=== PATIENT | female | born 1960 | race Caucasian/White ===

== ENCOUNTER 2019-06-25 16:53 | Emergency (ER) | payer SELFPAY ==
[2019-06-25 17:07] VITALS: BP 157/102; PULSE 109; RESP 16; TEMP 36.6; O2SAT 99; BMI 28.2
== END 2019-06-25 17:35 | disposition left against medical advice (07) ==
LOC: ER 07-07 12:24
PROVIDERS: Emergency Provider Family Medicine
DX: Z53.21 Procedure and treatment not carried out due to patient leaving prior to being seen by health care provider (principal)
CPT/HCPCS: 99281

== ENCOUNTER 2020-11-17 10:32 | Inpatient (IN) | payer SELFPAY ==
[2020-11-17] VITALS (14 sets, daily range): BP systolic 99–151; BP diastolic 63–86; PULSE 64–97; RESP 14–22; TEMP 36.6–37.1; O2SAT 92–98; BMI 26.6
--- NOTE | 2020-11-17 11:41 | CT_ITS ---
WS: [id number] CT ABDOMEN PELVIS TECHNIQUE: Contrast-enhanced CT of the abdomen and pelvis with coronal and sagittal reformatted image s. CLINICAL INFORMATION: epigastric pain, secondarily generalized, rebound tenderness COMPARISON: CT 9 29,018 DLP: 1325.[address] scans at [facility] use at least one of these dose optimization techniques: automat ed exposure control; mA and/or kV adjustment per patient size (includes targeted exams where dose is matched to clinical indication); or iterative reconstruction. FINDINGS: Prior postoperative hysterectomy. Large left renal cyst measuring 4.9 x 4.8 cm slightly increased in size from previous. Normal liver. Normal gallbladder. Normal portal vein and splenic vein. Normal spl een. Normal GE junction. Adrenal glands are normal. No hydronephrosis in either kidney. Small left re nal cyst. Lung bases are well aerated. Diffuse wall thickening of the sigmoid colon with edema and surrounding inflammatory changes consiste nt with acute diverticulitis. No evidence of drainable abscess or fluid collection. Colon is otherwis e normal in appearance. Normal caliber abdominal aorta. No free fluid in the pelvis. No abdominal or pelvic lymphadenopathy. No inguinal lymphadenopathy. CT/CT abdomen pelvis w con* [id number] IMPRESSION: 1. Diffuse thickening of the sigmoid colon with inflammatory stranding and nina ma in the left lower quadrant consistent with acute diverticulitis. 2. No evidence of drainable abscess or fluid collection. 3. Prior hysterectomy. 4. Large lower pole left renal cyst measuring 4.9 x 4.8 cm. No hydronephrosis. 5. No other significant changes from previous.
--- NOTE | 2020-11-17 11:44 | W.ED.ABDPA2 ---
HPI - Abdominal Pain General: Chief Complaint: Abdominal Pain Stated Complaint: severe ABD pain, lower back pain Time Seen by Provider: 11/17/20 11:26 Source: patient and family () Mode of arrival: ambulatory Limitations: no limitations History of Present Illness: HPI narrative: 60-year-old female patient who presents to the emergency department with abdominal pain for about 3 days. Started out in the epigastric region and has now become secondarily generalized. It is aggravated by any jarring movements. She does not have a diagnosed history of stomach ulcers but says she has a lot of reflux and takes lots and lots of [place]. She denies vomiting but has some nausea. No diarrhea. No fever. She is here to be evaluated for this. MD elicited complaint: abdominal pain Pertinent past history: gastritis Onset (ago): day(s) (3) Pain Consistency: constant Location: Diffuse Severity: severe Quality: stabbing Exacerbating factors: movement Relieving factors: nothing Associated Symptoms: Reports nausea; Denies anorexia, belching, bloating, change in bowel habits, change in stool character, chills, coffee ground emesis, constipation, GI cramping, diarrhea, dyspepsia, dysuria, excessive flatus, fever(s), heartburn, hematochezia, hematuria, hematemesis, fecal incontinence, loose stools, melena, poor appetite, syncope and vomiting Review of Systems General: Reports: 10 or more systems reviewed and unremarkable except in HPI and below Const: Denies: fever(s) or chills Card: Denies: syncope GI: Reports: nausea; Denies: vomiting, hematemesis, coffee ground emesis, heartburn, diarrhea, constipation, bloating, GI cramping, belching, excessive flatus, fecal incontinence, change in bowel habits, change in stool character, hematochezia or melena : Denies: dysuria or hematuria Physical Exam Const: COMMON NORMALS: average body habitus, patient oriented x3, no limitations, healthy appearing, alert and well nourished GENERAL APPEARANCE: in distress HENMT: COMMON NORMALS: normocephalic, atraumatic and moist oral mucous membranes HEAD & SCALP: normocephalic and atraumatic Neck/C-Spine: COMMON NORMALS: no meningeal signs and no JVD Chest: COMMONS NORMALS: normal inspection of the chest and normal palpation of entire chest wall Resp: COMMON NORMALS: normal respiratory effort, No retractions, No use of accessory muscles, clear to auscultation bilaterally and percussion normal AUSCULTATION: clear to auscultation bilaterally PERCUSSION: percussion normal Cardio: COMMON NORMALS: no JVD, regular rate, regular rhythm, S1 normal heart sound present, S2 normal heart sound present, No gallops present (Cardio), No clicks present (Cardio), No murmurs present (Cardio), No rub (Cardio) and Peripheral pulses 2+ throughout RATE: regular rate RHYTHM: regular rhythm HEART SOUNDS: S1 normal heart sound present and S2 normal heart sound present PERIPHERAL PULSES: Peripheral pulses 2+ throughout GI: COMMON NORMALS: Soft to palpation, non-tender, No hepatosplenomegaly present, no masses and no bruits INSPECTION: Yes normal to inspection PALPATION: Yes Soft to palpation, Yes Tenderness to palpation present (GI) (generalized), Yes Guarding due to palpation present (GI) (generalized), Yes No hepatosplenomegaly present and Yes Rebound tenderness present Extremity: COMMON NORMALS: normal to inspection, full ROM, capillary refill normal, no calf tenderness and no pedal edema Neuro: COMMON NORMALS: patient oriented x3 SENSORIUM/ORIENTATION: Yes alert MENINGEAL SIGNS: Yes no meningeal signs Course Reevaluation(s): Reevaluation #1: Discussed her lab and imaging findings with her. Explained that she has acute diverticulitis. Discussed treatment options with her-outpatient versus inpatient therapy. She has significant amount of pain and she is concerned about going home with so much pain. I will therefore admitted to the hospital for IV antibiotics and pain control. The degree of tenderness and rebound tenderness is concerning and I am worried that she may have a microperforation that is not evident yet on imaging. So I think it is a good idea to keep her in the hospital for serial exams and further evaluation. Time: 13:44 Consultations: Consultation #1: Discussed the patient with Dr. Wiggins, hospitalist and she kindly accepted patient to her service. Time: 13:58 Vital Signs: Vital signs: Vital Signs Temperature 98.8 F 11/17/20 20:00 Pulse Rate 81 11/17/20 20:00 Respiratory Rate 14 11/17/20 20:00 Blood Pressure 105/63 11/17/20 20:00 Pulse Oximetry 92 11/17/20 20:00 MDM - Abdominal Pain MDM Narrative: Medical decision making narrative: 60-year-old female patient who presents to the emergency department with abdominal pain of several days duration. Evaluation in the emergency department shows she has acute diverticulitis. Her abdominal examination is however concerning and she is being admitted for IV antibiotics and further evaluation. Medical Records: Attestation: I reviewed the patient's medical records. Lab Data: Attestation: I reviewed the patient's lab results. Labs: Lab Results 11/17/20 11/17/20 11/17/20 Range/Units 13:10 13:10 13:10 WBC 13.2 H (4.0-10.0) 10^3/ uL RBC 3.58 L (4.1-5.3) 10^6/u L Hgb 11.7 (11.5-15.3) g/dL Hct 35.2 L (37.0-47.0) % MCV 98.3 (81-99) fL MCH 32.7 (28.0-34.0) pg MCHC 33.2 (30.0-36.0) g/dL RDW 12.2 (12.1-15.1) % Plt Count 203 (130-400) 10^3/c mm MPV 9.5 (7.4-10.4) fL Neut % (Auto) 82.1 % Lymph % (Auto) 11.0 % [place] % (Auto) 6.4 % Eos % (Auto) 0.0 % Baso % (Auto) 0.2 % Neut # (Auto) 10.82 H (1.8-7.7) 10^3/u L Lymph # (Auto) 1.5 (0.8-4.8) 10^3/u L [place] # (Auto) 0.8 (0.2-0.9) 10^3/u L Eos # (Auto) 0.0 (0.0-0.8) 10^3/u L Baso # (Auto) 0.0 (0.0-0.1) 10^3/u L Nucleated RBC % (a uto) 0 % Nucleated RBCs # 0.0 /100WBC Sodium 140 (136-145) mmol/L Potassium 3.4 L (3.5-5.1) mmol/L Chloride 110 H (98-107) mmol/L Carbon Dioxide 21 L (22-29) mmol/L Anion Gap 12.4 (5-19) BUN 9 (6-20) mg/dL Creatinine 0.5 (0.5-0.9) mg/dL GFR Calculation 126.7 (90-130) mL/min Glucose 85 (65-115) mg/dL Calculated Osmolal ity 288 (285-295) mOsm/k g Lactate 0.7 (0.5-2.2) mmol/L Calcium 6.5 L (8.5-10.5) mg/dL Magnesium (1.7-2.3) mg/dL Total Bilirubin 0.7 (0.15-1.2) mg/dL AST 19 (0-32) U/L ALT 16 (0-33) U/L Alkaline Phosphata se 73 (35-105) IU/L C-Reactive Protein 93.9 H (0.0-4.9) mg/L Total Protein 5.1 L (6.6-8.7) g/dL Albumin 2.8 L (3.5-5.2) g/dL Globulin 2.3 (1.3-4.6) g/dL Lipase 16 (13-60) U/L Urine Color (Yellow) Urine Appearance (CLEAR) Urine pH (5-7) Ur Specific Gravit y (1.005-1.030) Urine Protein (Negative) Urine Glucose (UA) (Normal) Urine Ketones (Negative) Urine Blood (Negative) Urine Nitrate (Negative) Urine Bilirubin (Negative) Urine Urobilinogen (Negative) mg/dL Ur Leukocyte Funmi ase (Negative) Urine RBC (0-2) /hpf Urine WBC (0-5) /hpf Ur Squamous Epith Cells (0-5) /hpf Amorphous Sediment Urine Bacteria (NONE) /hpf 11/17/20 11/17/20 Range/Units 13:10 13:50 WBC (4.0-10.0) 10^3/ uL RBC (4.1-5.3) 10^6/u L Hgb (11.5-15.3) g/dL Hct (37.0-47.0) % MCV (81-99) fL MCH (28.0-34.0) pg MCHC (30.0-36.0) g/dL RDW (12.1-15.1) % Plt Count (130-400) 10^3/c mm MPV (7.4-10.4) fL Neut % (Auto) % Lymph % (Auto) % [place] % (Auto) % Eos % (Auto) % Baso % (Auto) % Neut # (Auto) (1.8-7.7) 10^3/u L Lymph # (Auto) (0.8-4.8) 10^3/u L [place] # (Auto) (0.2-0.9) 10^3/u L Eos # (Auto) (0.0-0.8) 10^3/u L Baso # (Auto) (0.0-0.1) 10^3/u L Nucleated RBC % (a uto) % Nucleated RBCs # /100WBC Sodium (136-145) mmol/L Potassium (3.5-5.1) mmol/L Chloride (98-107) mmol/L Carbon Dioxide (22-29) mmol/L Anion Gap (5-19) BUN (6-20) mg/dL Creatinine (0.5-0.9) mg/dL GFR Calculation (90-130) mL/min Glucose (65-115) mg/dL Calculated Osmolal ity (285-295) mOsm/k g Lactate (0.5-2.2) mmol/L Calcium (8.5-10.5) mg/dL Magnesium 1.7 (1.7-2.3) mg/dL Total Bilirubin (0.15-1.2) mg/dL AST (0-32) U/L ALT (0-33) U/L Alkaline Phosphata se (35-105) IU/L C-Reactive Protein (0.0-4.9) mg/L Total Protein (6.6-8.7) g/dL Albumin (3.5-5.2) g/dL Globulin (1.3-4.6) g/dL Lipase (13-60) U/L Urine Color Yellow (Yellow) Urine Appearance Clear (CLEAR) Urine pH 7 (5-7) Ur Specific Gravit y 1.005 (1.005-1.030) Urine Protein Neg (Negative) Urine Glucose (UA) Norm (Normal) Urine Ketones Negative (Negative) Urine Blood 2+ H (Negative) Urine Nitrate Negative (Negative) Urine Bilirubin Neg (Negative) Urine Urobilinogen Norm (Negative) mg/dL Ur Leukocyte Funmi ase Negative (Negative) Urine RBC 5-10 H (0-2) /hpf Urine WBC None (0-5) /hpf Ur Squamous Epith Cells 0-4 H (0-5) /hpf Amorphous Sediment Not Reportable Urine Bacteria Trace (NONE) /hpf Imaging Data ^: CT Abd/Pel: Attestation: I personally reviewed and interpreted this imaging study as follows: Radiologist's impression: [address] [id number] Scan ReportSigned Patient: Luly Dumont #: [id number]: 1960Acct#:[id number]/Sex: 60 / FADM Date: 11/17/20Loc: ERRoom/Bed:Attending Dr: Ordering Provider/Ordering MD: Leonardo Cano MD, [facility] [place] Date of Service: 11/17/20 Procedure(s): CT abdomen pelvis w con* [id number] Accession Number(s): [id number] Report Number: [id number] WS: [id number] CT ABDOMEN PELVIS TECHNIQUE: Contrast-enhanced CT of the abdomen and pelvis with coronal and sagittal reformatted images. CLINICAL INFORMATION: epigastric pain, secondarily generalized, rebound tenderness COMPARISON: CT 9 29,018 DLP: 1325.[address] scans at [facility] use at least one of these dose optimization techniques: automated exposure control; mA and/or kV adjustment per patient size (includes targeted exams where dose is matched to clinical indication); or iterative reconstruction. FINDINGS: Prior postoperative hysterectomy. Large left renal cyst measuring 4.9 x 4.8 cm slightly increased in size from previous. Normal liver. Normal gallbladder. Normal portal vein and splenic vein. Normal spleen. Normal GE junction. Adrenal glands are normal. No hydronephrosis in either kidney. Small left renal cyst. Lung bases are well aerated. Diffuse wall thickening of the sigmoid colon with edema and surrounding inflammatory changes consistent with acute diverticulitis. No evidence of drainable abscess or fluid collection. Colon is otherwise normal in appearance. Normal caliber abdominal aorta. No free fluid in the pelvis. No abdominal or pelvic lymphadenopathy. No inguinal lymphadenopathy. CT/CT abdomen pelvis w con* [id number] IMPRESSION: 1. Diffuse thickening of the sigmoid colon with inflammatory stranding and edema in the left lower quadrant consistent with acute diverticulitis. 2. No evidence of drainable abscess or fluid collection. 3. Prior hysterectomy. 4. Large lower pole left renal cyst measuring 4.9 x 4.8 cm. No hydronephrosis. 5. No other significant changes from previous. Dictated By:Darío Arnold MDSigned By:Darío Arnold MDSigned Date/Time:11/17/20 1237DD/ 1230 Discharge Plan Discharge Patient Disposition: Admitted As Inpatient Admit Provider: August Wiggins Clinical Impression: Diverticulitis large intestine Condition: Stable Coding Level of Care Code ED Printing Machine Mechanic for [facility] Fwd Exam Comprehensive
[2020-11-17] MEDS: morphine 4 mg/mL SDV 1 mL IVP ×2 (11:54→16:09)
[2020-11-17] MEDS: ondansetron 2 mg/ML SDV 2 mL 4 MG IVP (11:54)
--- NOTE | 2020-11-17 12:11 | PC.NURSE ---
C/O nausea and severe abdominal pain 03/13. Meds administered per order. Pt states she believed she was constipated so she did two fleet enemas yesterday and one this AM. Normally she has no difficulty with BM's.
[2020-11-17] MEDS: iohexol 300 mg/mL 100 mL Btl IV (12:25)
[2020-11-17] MEDS: ciprofloxacin 400 MG/200 ML PREMIX 200 MG IV (12:54)
--- NOTE | 2020-11-17 12:57 | PC.PHAR ---
pt states she takes no rx medications-pt states she only takes otc medications prn-pt states she does use bd oil in her coffee every morning but states she hasnt used for 2 days
[2020-11-17 13:17] LABS: Basophils % 0.2 %; Hematocrit 35.2 % (37.0-47.0); Hemoglobin 11.7 g/dL (11.5-15.3); Lymphocytes # 1.5 10^3/uL (0.8-4.8); Mean Corpuscular HGB Conc 33.2 g/dL (30.0-36.0); Mean Corpuscular Hemoglobin 32.7 pg (28.0-34.0); Mean Corpuscular Volume 98.3 fL (81-99); Mean Platelet Volume 9.5 fL (7.4-10.4); Monocytes # 0.8 10^3/uL (0.2-0.9); Monocytes % 6.4 %; Neutrophils # 10.82 10^3/uL (1.8-7.7); Neutrophils % 82.1 %; Nucleated Red Blood Cells % 0 %; Platelet Count 203 10^3/cmm (130-400); Red Blood Count 3.58 10^6/uL (4.1-5.3); Red Cell Distribution Width 12.2 % (12.1-15.1); White Blood Count 13.2 10^3/uL (4.0-10.0)
[2020-11-17 13:35] LABS: Alanine Aminotransferase 16 U/L (0-33); Albumin Level 2.8 g/dL (3.5-5.2); Alkaline Phosphatase 73 IU/L (35-105); Aspartate Amino Transferase 19 U/L (0-32); Blood Urea Nitrogen 9 mg/dL (6-20); C Reactive Protein 93.9 mg/L (0.0-4.9); Calcium 6.5 mg/dL (8.5-10.5); Carbon Dioxide 21 mmol/L (22-29); Chloride 110 mmol/L (98-107); Globulin 2.3 g/dL (1.3-4.6); Glomerular Filtration Rate 126.7 mL/min (90-130); Glucose 85 mg/dL (65-115); Lactate (Lactic Acid level) 0.7 mmol/L (0.5-2.2); Lipase 16 U/L (13-60); Osmolality Calculated 288 mOsm/kg (285-295); Sodium 140 mmol/L (136-145); Total Bilirubin 0.7 mg/dL (0.15-1.2); Total Protein 5.1 g/dL (6.6-8.7)
[2020-11-17 13:36] LABS: Anion Gap 12.4 (5-19); Potassium 3.4 mmol/L (3.5-5.1)
[2020-11-17 14:07] LABS: Add Urine Microscopic? YES; Bilirubin Urine Neg (Negative); Blood Urine 2+ (Negative); Glucose Urine UA Norm (Normal); Ketones Urine Negative (Negative); Leukocyte Esterase Urine Negative (Negative); Nitrate Urine Negative (Negative); Protein Urine Neg (Negative); Specific Gravity, Urine 1.005 (1.005-1.030); Urine Appearance Clear (CLEAR); Urine Color Yellow (Yellow); Urobilinogen Urine Norm (Negative); pH Urine 7 (5-7)
[2020-11-17 14:27] LABS: Add Urine Culture? No; Bacteria Urine TRACE /hpf; Squamous Epithelial Cell Urine 0-4 /hpf (0-5)
[2020-11-17] MEDS: metroNIDAZOLE IV 500 MG/100 ML PREMIX 100 MG IV ×2 (14:56→23:37)
--- NOTE | 2020-11-17 15:22 | PC.NURSE ---
Report called to Ting--Med Surg nurse.
[2020-11-17] MEDS: dextrose 5%-sod chloride 0.9% 1,000 ML 100 ML IV (16:09)
[2020-11-17] MEDS: heparin 5,000 unit/mL INJ 1 mL 5000 UNIT SUBCUT ×2 (16:10→23:37)
--- NOTE | 2020-11-17 17:04 | PC.NURSE ---
Report to Cindy ECKERT at this time.
[2020-11-17] MEDS: HYDROmorphone 1 mg/mL INJ 1 mL 0.5 MG IVP (18:12)
--- NOTE | 2020-11-17 18:54 | P.HP_ITS ---
Providers/Chief Complaint Admitting Physician: August Wiggins DO Primary Care Provider: Scooter Hwang Chief Complaint: severe ABD pain, lower back pain History of Present Illness Luly Dumont is a 60 year old female who progressed presents with abdominal pain. She states it started in her upper stomach where she is frequently has nausea and heartburn. Then progressed to the lower abdomen. The pain worse and became very severe 2 days ago. Finally she was unable to tolerate the pain and came to the emergency room. She was found to have acute diverticulitis. He denies any history of diverticulosis or-itis. She admits to significant stress caring for her mother. Review of Systems Const: Denies: fever(s) or chills Eyes: Denies: change in vision ENMT: Denies: throat pain or nasal congestion Card: Denies: chest pain or palpitations Resp: Denies: dyspnea or productive cough GI: Reports: abdominal pain and nausea; Denies: vomiting, diarrhea or constipation : Denies: dysuria Musc: Denies: back pain or extremity pain Skin/Breast: Denies: rash or lesions Neuro: Denies: headache(s) or dizziness Psych: Reports: anxiety [place]/Lymph: Denies: easy bruising or easy bleeding Medications/Allergies Home Medications Medication Instructions Recorded Confirmed Last Taken Type acetaminophen [Tylenol Ex Str 1,000 mg PO PRN 11/17/20 11/17/20 11/17/20 History Rapid Release] multivitamin 1 tab PO DAILY 11/17/20 11/17/20 11/15/20 History Allergies Allergy/AdvReac Type Severity Reaction Status Date / Time No Known Allergies Allergy Verified 11/17/20 12:57 Vitals/I&O/Wt Last Vital Signs Temp 98.3 F 11/17/20 16:00 Pulse 65 11/17/20 16:00 Resp 18 11/17/20 16:09 BP 136/81 11/17/20 16:00 Pulse Ox 95 11/17/20 16:09 11/17/20 11/17/20 11/17/20 06:59 14:59 22:59 Intake Total 540 / 540 Balance 540 / 540 Weight last 48 hrs Weight 74.843 kg Physical Exam Narrative: EXAM NARRATIVE: General: Patient appears her stated age of 60 she is in mild to moderate distress due to pain and discomfort. Appears well- nourished and well-hydrated. H EENT: Head is normocephalic atraumatic pupils are equal round and reactive to light and accommodation. Extraocular muscles are intact there is no scleral icterus nasal and pharyngeal mucosa is moist and pink there is no exudate. Neck is supple no JVD carotid bruits or lymphadenopathy heart is regular normal S1-S2 without murmurs clicks gallops or rubs lungs are clear to auscultation without wheezes rales or rhonchi abdomen is very tender even to light palpation worse in the left lower quadrant she has sluggish bowel sounds. Extremities no clubbing cyanosis or edema neuro alert and oriented to person place time and situation cranial nerves II through XII are grossly intact she has nonfocal psychiatric patient does show signs of some anxiety and admits to severe stress. Data : 11/17/20 13:10 11/17/20 13:10 A&P Assessment and plan (1) Diverticulitis large intestine: Bowel rest Antibiotics Fluids Control Status: Acute (2) Stress and adjustment reaction: Hydroxyzine for stress and anxiety Status: Acute (3) Elevated white blood cell count: Cipro and Flagyl for active infection Status: Acute (4) Hypokalemia due to excessive gastrointestinal loss of potassium: Potassium added to IV will follow and supplement as indicated Status: Acute (5) Hypocalcemia: Will give a gram of calcium gluconate. Status: Acute (6) Hypoalbuminemia: We will follow Status: Acute Attestations Medical Necessity Statement*: Patient with severe abdominal pain and nausea. Patient is unable to eat she requires IV hydration and IV antibiotics to treat her infection. Patient may likely require 2 midnights Coding Level of Care Code Acute Biomedical Technician for [facility] Fwd Diagnoses Diverticulitis large intestine K57.32 Stress and adjustment reaction F43.29 Elevated white blood cell count D72.829 Hypokalemia due to excessive gastrointestinal loss of potassium E87.6 Hypocalcemia E83.51 Hypoalbuminemia E88.09
[2020-11-17 19:29] LABS: Magnesium 1.7 mg/dL (1.7-2.3)
[2020-11-17] MEDS: diazePAM 5 mg Tablet PO (20:55)
[2020-11-17] MEDS: dextrose 5%-sod chloride 0.9% 1,000 ML 200 ML IV (20:56)
[2020-11-18] VITALS (13 sets, daily range): BP systolic 103–120; BP diastolic 61–75; PULSE 50–72; RESP 14–20; TEMP 36.3–37; O2SAT 92–100
[2020-11-18] MEDS: ciprofloxacin 400 MG/200 ML PREMIX 200 MG IV ×2 (01:42→14:03)
[2020-11-18] MEDS: HYDROmorphone 1 mg/mL INJ 1 mL 0.5 MG IVP ×3 (02:51→16:50)
[2020-11-18] MEDS: dextrose 5%-sod chloride 0.9% 1,000 ML 200 ML IV ×2 (05:53→12:12)
[2020-11-18 05:57] LABS: Basophils % 0.2 %; Eosinophils % 0.2 %; Hematocrit 32.2 % (37.0-47.0); Hemoglobin 10.6 g/dL (11.5-15.3); Lymphocytes # 1.1 10^3/uL (0.8-4.8); Lymphocytes % 13.4 %; Mean Corpuscular HGB Conc 32.9 g/dL (30.0-36.0); Mean Corpuscular Hemoglobin 32.5 pg (28.0-34.0); Mean Corpuscular Volume 98.8 fL (81-99); Mean Platelet Volume 9.5 fL (7.4-10.4); Monocytes # 0.6 10^3/uL (0.2-0.9); Monocytes % 7.5 %; Neutrophils # 6.29 10^3/uL (1.8-7.7); Neutrophils % 78.5 %; Nucleated Red Blood Cells % 0 %; Platelet Count 208 10^3/cmm (130-400); Red Blood Count 3.26 10^6/uL (4.1-5.3); Red Cell Distribution Width 12.2 % (12.1-15.1)
[2020-11-18] MEDS: morphine 4 mg/mL SDV 1 mL IVP (06:00)
[2020-11-18 06:17] LABS: Blood Urea Nitrogen 7 mg/dL (6-20); Calcium 7.9 mg/dL (8.5-10.5); Carbon Dioxide 27 mmol/L (22-29); Chloride 105 mmol/L (98-107); Glomerular Filtration Rate 85.9 mL/min (90-130); Glucose 125 mg/dL (65-115); Magnesium 1.8 mg/dL (1.7-2.3); Osmolality Calculated 283 mOsm/kg (285-295); Sodium 137 mmol/L (136-145)
[2020-11-18] MEDS: metroNIDAZOLE IV 500 MG/100 ML PREMIX 100 MG IV ×3 (07:23→22:18)
[2020-11-18] MEDS: heparin 5,000 unit/mL INJ 1 mL 5000 UNIT SUBCUT ×3 (07:23→22:53)
[2020-11-18] MEDS: ondansetron 2 mg/ML SDV 2 mL 4 MG IVP (09:04)
--- NOTE | 2020-11-18 10:50 | PC.CHAP ---
Pastoral Care Encounter/Spiritual Assessment Type of Contact [x] Declined deckhand oyster dredge visit [] Patient/Family/Request visit [] Outpatient visit [] Follow-up visit [] Physician referral [] Code/Alert [] Routine visit [] Staff referral [] Actively dying [] Patient sleeping [] Family support [] [] Out of room [] Palliative care [] [] Receiving care in room [] Pre-surgical visit [] Trauma [] Long length of stay [] ICU visit [] Other: Relational/Emotional Strength [] Patient feels connected with others/family/visitors/staff [] Distress [] Loneliness/isolation [] Abandonment Spirituality of Patient [] Person of Shelly [] Attends Evangelical of their Shelly [] Believes in Prayer [] Reads Bible or Spiritism materials [] There are Spiritual issues to be addressed Laboratory Associate Interventions [] Prayer [] Active listening [] Non-anxious presence [] Spiritual/emotional support [] Crisis/trauma care [] Spiritual counseling [] Bereavement support [] Provided bereavement packet [] Provided Bible/devotional materials [] Provided toy/stuffed animal, coloring book to patient or family member [] Provided Communion [] Anointing/[place] [] Salvation [] Completed spiritual assessment [] Other: Impact on Illness or Injury [] Angry [] Fearful [] Anxious [] Often cries [] Exhaustion [] Unable to work [] Unable to attend church [] Unable to walk/stand [] Unable to read [] Unable to drive [] Unable to eat/drink [] Unable to sleep [] Unable to be with family [] Patient intubated [] Other: Summary Declined deckhand oyster dredge visit Time spent with patient 5 mins
[2020-11-18] MEDS: hyDROXYzine 25 mg Capsule 50 MG PO ×2 (12:11→20:06)
--- NOTE | 2020-11-18 15:30 | P.PN_ITS ---
Subjective Subjective: Interval history: Patient reports significant pain. RN present while rounding and states patient does not ask for pain medications. Also patient complained of lack of sleep due to her roommate. Vitals/I&O/Wt Last Vital Signs Temp 97.9 F 11/18/20 15:16 Pulse 50 L 11/18/20 15:16 Resp 17 11/18/20 15:16 BP 116/75 11/18/20 15:16 Pulse Ox 95 11/18/20 15:16 11/18/20 11/18/20 11/18/20 06:59 14:59 22:59 Intake Total 1500 / 3228.333 1610 / 1610 200 / 1810 Balance 1500 / 3228.333 1610 / 1610 200 / 1810 Weight last 48 hrs Weight 74.843 kg Physical Exam Narrative: EXAM NARRATIVE: General: Patient appears she is holding her belly while we talk. Heart normal S1-S2 without murmurs clicks gallops or rubs lungs: Clear to auscultation Abdomen extremely tender to even mild palpation. I feel that this is psychiatric in nature. Extremities: No clubbing cyanosis or edema Data : 11/18/20 05:35 11/18/20 05:35 A&P Assessment and plan (1) Diverticulitis large intestine: Continue IV Cipro and Flagyl for now Status: Acute Qualifiers: Diverticulitis bleeding: without bleeding Diverticulitis complication: without perforation or abscess Qualified Code(s): K57.32 - Diverticulitis of large intestine without perforation or abscess without bleeding (2) Hypokalemia due to excessive gastrointestinal loss of potassium: Potassium is 4.0 now after supplementation. Status: Acute (3) Hypocalcemia: Patient received a dose of calcium gluconate calcium is now 7.9. Corrected with albumin level results and corrected calcium level of 8.86 which is now normal. Status: Acute (4) Elevated white blood cell count: White blood cell count is now after 1 day of antibiotic treatment Status: Acute (5) Hypoalbuminemia: This may be the result of diverticulitis can follow as outpatient. Status: Acute (6) Stress and adjustment reaction: Valium to help with sleep. As needed for anxiety. Status: Acute Attestations Medical Necessity Statement*: Patient has been requiring IV pain medication IV fluids and IV antibiotics. Will adjust pain medications and keep another midnight. Coding Level of Care Code Acute Chief Medical Officer for [facility] Fwd Diagnoses Diverticulitis large intestine K57.32 Diverticulitis bleeding: without bleeding Diverticulitis complication: without perforation or abscess Hypokalemia due to excessive gastrointestinal loss of potassium E87.6 Hypocalcemia E83.51 Elevated white blood cell count D72.829 Hypoalbuminemia E88.09 Stress and adjustment reaction F43.29
--- NOTE | 2020-11-18 19:27 | PC.NURSE ---
Report to Janny Faith LPN at this time.
[2020-11-18] MEDS: diazePAM 5 mg Tablet 10 MG PO (20:06)
[2020-11-18] MEDS: dextrose 5%-sod chloride 0.9% 1,000 ML 125 ML IV (20:12)
[2020-11-19] VITALS (8 sets, daily range): BP systolic 108–154; BP diastolic 65–91; PULSE 61–71; RESP 16–18; TEMP 36.6–37.3; O2SAT 93–97
[2020-11-19] MEDS: ciprofloxacin 400 MG/200 ML PREMIX 200 MG IV ×2 (00:55→13:30)
--- NOTE | 2020-11-19 05:25 | P.PN_ITS ---
Subjective Subjective: Interval history: 60-year-old female Presented to the hospital with abdominal pain.Upon arrival to emergency room she did have a CT abdomen pelvis which showed diffuse thickening of the sigmoid colon with inflammatory stranding and edema suggestive of diverticulitis. Incidentally was noted to have a large left renal cyst measuring 4.9 x 4.8 cm.Laboratory workup is showed a WBC of 13.2, hemoglobin of 11.7, hematocrit of 35.2 and a platelet count of 203. Sodium 140, potassium 3.4, chloride 110, bicarb 21, BUN 9 and creatinine of 0.5. Lactic acid of 0.7 LFTs were within normal limits. Urinalysis did not show any evidence of infectious process.She was started on [id number] mg IV q.12 and Flagyl 500 mg IV Q 8. Addition was started on clear liquid diet. leukocytosis have resolved. Medications: Reviewed: Yes Vitals/I&O/Wt Last Vital Signs Temp 98.9 F 11/19/20 04:42 Pulse 71 11/19/20 04:42 Resp 17 11/19/20 04:42 BP 108/65 11/19/20 04:42 Pulse Ox 97 11/19/20 04:42 11/18/20 11/18/20 11/19/20 14:59 22:59 06:59 Intake Total 1610 / 1610 1520 / 3130 1300 / 4430 Balance 1610 / 1610 1520 / 3130 1300 / 4430 Weight last 48 hrs Weight 74.843 kg Physical Exam Narrative: EXAM NARRATIVE: General :Awake, alert and oriented x3 HEENT: Grossly unremarkable CVS: RRR Chest: CTABL Abd: Soft, NT, ND Ext : No edema , FROM x 4. Data : 11/19/20 05:59 11/19/20 05:59 A&P Assessment and plan (1) Sigmoid diverticulitis: Status: Acute (2) Hypokalemia due to excessive gastrointestinal loss of potassium: Status: Acute Acute sigmoid diverticulitis Continue ciprofloxacin 400 mg IV Q 12 Flagyl 500 mg IV q.8 Tolerating clear liquid diet Advance diet pain improved Leukocytosis resolved Outpatient follow-up with General surgery Attestations Medical Necessity Statement*: Require further hospitalization for management of diverticulitis Time Spent in Patient Care: Greater than 35 minutes (>than 50% of time spent in counselling and/or direct pt care on unit) . Coding Level of Care Code Acute Clinical Technologist for [facility] Fwd Diagnoses Sigmoid diverticulitis K57.32 Hypokalemia due to excessive gastrointestinal loss of potassium E87.6
[2020-11-19 06:13] LABS: Basophils % 0.4 %; Eosinophils # 0.1 10^3/uL (0.0-0.8); Eosinophils % 1.2 %; Hematocrit 33.3 % (37.0-47.0); Lymphocytes # 1.2 10^3/uL (0.8-4.8); Lymphocytes % 23.1 %; Mean Corpuscular Hemoglobin 32.2 pg (28.0-34.0); Mean Corpuscular Volume 97.4 fL (81-99); Mean Platelet Volume 9.7 fL (7.4-10.4); Monocytes # 0.4 10^3/uL (0.2-0.9); Monocytes % 8.1 %; Neutrophils # 3.48 10^3/uL (1.8-7.7); Nucleated Red Blood Cells % 0 %; Platelet Count 204 10^3/cmm (130-400); Red Blood Count 3.42 10^6/uL (4.1-5.3); White Blood Count 5.2 10^3/uL (4.0-10.0)
[2020-11-19] MEDS: dextrose 5%-sod chloride 0.9% 1,000 ML 125 ML IV ×3 (06:16→23:59)
[2020-11-19] MEDS: metroNIDAZOLE IV 500 MG/100 ML PREMIX 100 MG IV ×3 (06:18→23:58)
[2020-11-19 06:33] LABS: Anion Gap 9.9 (5-19); Blood Urea Nitrogen 4 mg/dL (6-20); Calcium 8.2 mg/dL (8.5-10.5); Carbon Dioxide 27 mmol/L (22-29); Chloride 107 mmol/L (98-107); Glomerular Filtration Rate 85.9 mL/min (90-130); Glucose 103 mg/dL (65-115); Osmolality Calculated 287 mOsm/kg (285-295); Potassium 3.9 mmol/L (3.5-5.1); Sodium 140 mmol/L (136-145)
[2020-11-19] MEDS: heparin 5,000 unit/mL INJ 1 mL 5000 UNIT SUBCUT ×3 (07:47→23:59)
[2020-11-19] MEDS: acetaminophen 325 mg Tablet 650 MG PO (10:20)
[2020-11-19] MEDS: hyDROXYzine 25 mg Capsule 50 MG PO ×2 (10:20→21:07)
--- NOTE | 2020-11-19 18:58 | PC.NURSE ---
Report to Janny Faith LPN at this time.
[2020-11-19] MEDS: diazePAM 5 mg Tablet 10 MG PO (21:07)
[2020-11-20] VITALS (7 sets, daily range): BP systolic 116–143; BP diastolic 63–83; PULSE 66–78; RESP 18–20; TEMP 36.4–37; O2SAT 95–98
[2020-11-20] MEDS: ciprofloxacin 400 MG/200 ML PREMIX 100 MG IV (01:23)
[2020-11-20] MEDS: metroNIDAZOLE IV 500 MG/100 ML PREMIX 100 MG IV (06:29)
[2020-11-20] MEDS: dextrose 5%-sod chloride 0.9% 1,000 ML 200 ML IV (07:58)
[2020-11-20] MEDS: heparin 5,000 unit/mL INJ 1 mL 5000 UNIT SUBCUT (07:58)
[2020-11-20] MEDS: acetaminophen 325 mg Tablet 650 MG PO (11:28)
--- NOTE | 2020-11-20 20:36 | P.DS_ITS ---
Discharge Providers Date of Admission: 11/18/20 15:30 Date of Discharge: November 20, 2020 Attending Provider at Admission: August Wiggins DO Attending Provider at Discharge: Nathaniel Calderon Primary Care Provider: Scooter Hwang Diagnoses at Discharge Discharge Diagnosis (1) Sigmoid diverticulitis: Status: Acute (2) Hypokalemia due to excessive gastrointestinal loss of potassium: Status: Resolved Reason for Visit Reason for Visit: severe ABD pain, lower back pain Hospital Course Hospital Course 10-year-old female Presented to the hospital with abdominal pain.Upon arrival to emergency room she did have a CT abdomen pelvis which showed diffuse thickening of the sigmoid colon with inflammatory stranding and edema suggestive of diverticulitis. Incidentally was noted to have a large left renal cyst measuring 4.9 x 4.8 cm.Laboratory workup is showed a WBC of 13.2, hemoglobin of 11.7, hematocrit of 35.2 and a platelet count of 203. Sodium 140, potassium 3.4, chloride 110, bicarb 21, BUN 9 and creatinine of 0.5. Lactic acid of 0.7 LFTs were within normal limits. Urinalysis did not show any evidence of infectious process.She was started on [id number] mg IV q.12 and Flagyl 500 mg IV Q 8. Addition was started on clear liquid diet. Leukocytosis has resolved. Patient pain had also resolved. She was transitioned to PO abx and discharged. Follow up with pcp. Also to f/u with surgery for colonosopcy in 4-6 weeks. Physical Exam Narrative: EXAM NARRATIVE: General :Awake, alert and oriented x3 HEENT: Grossly unremarkable CVS: RRR Chest: CTABL Abd: Soft, NT, ND Ext : No edema , FROM x 4. Discharge Data Data Completed and Pending: Completed Studies During Hospitalization Category Date Time Status CT abdomen pelvis w con* [id number] Urge nt Cat Scan 11/17/20 11:41 Completed Vitals: Last Vital Signs Temp 97.5 F L 11/20/20 14:35 Pulse 75 11/20/20 14:35 Resp 18 11/20/20 14:35 BP 127/63 11/20/20 14:35 Pulse Ox 98 11/20/20 14:35 Discharge Plan Discharge Patient Disposition: Home Condition: Stable Prescriptions: New Augmentin 875-125 mg tablet 1 tab PO BID Qty: 14 RF: 0 Continued multivitamin Tablet 1 tab PO DAILY RF: 0 acetaminophen 500 mg Tablet 1,000 mg PO PRN RF: 0 No Action hydroxyzine pamoate 25 mg capsule 25 mg PO QID PRN (Reason: Anxiety) Qty: 60 RF: 0 lisinopril 5 mg tablet 5 mg PO DAILY Qty: 30 RF: 2 Discharge Orders: Discharge Order (Routine); Ordered 11/20/20 Ordered By: Nathaniel Calderon Referrals: Sree Omer MD [Physician] - 6 Weeks (Colonoscopy ) Slava Samson FNP [Nurse Practitioner] - (You will have a follow up appointment on November 26, 2019 at 9:30 am at the [facility]. If you have any questions or need to reschedule please call them at [phone].) Discharge Diet: Advance as tolerated Discharge Activity: Increase activity as tolerated Patient Instructions: Amoxicillin/Clavulanate Potassium (By mouth), Hydroxyzine Pamoate (By mouth), Diverticulitis (GEN), Stress (DC), Diverticulitis Diet (DC), Ascites (DC), Opioid Safety Activity Restrictions/Additional Instructions: Return to hospital if any recurrance of pain, nausea or vomiting. Discharge Attestations Time Spent in Discharge Care*: greater than 30 min Specific Discharge Activities: educating patient, educating and/or supporting family/caregiver, discussing with bilingual case manager/social workers/dc planners, documenting/other paperwork and evaluating patient/reviewing data Status at Discharge: Cognitive status at discharge: cognitively intact , Behavioral status at discharge: cooperative , Functional status at discharge: independent ambulation Overall status at discharge: patient is back to baseline Quality Metrics Clinical Quality Measures During this hospital stay, did patient experience: None Coding Level of Care Code Acute Chg FW DC note Diagnoses Sigmoid diverticulitis K57.32 Hypokalemia due to excessive gastrointestinal loss of potassium E87.6
== END 2020-11-20 14:30 | disposition home or self-care (01) | DRG 392 ==
LOC: ER 11:26 → MEDSURG 14:54
PROVIDERS: Admitting Provider Internal Medicine; Emergency Provider Family Medicine; PCP Nurse Practitioner Family; Visit Provider Hospitalist
DX: K57.32 Diverticulitis of large intestine without perforation or abscess without bleeding (principal); Q61.01 Congenital single renal cyst; F43.20 Adjustment disorder, unspecified; E87.6 Hypokalemia; E83.51 Hypocalcemia; E88.09 Other disorders of plasma-protein metabolism, not elsewhere classified
CPT/HCPCS: 36415; 74177; 80048; 80053; 81001; 83605; 83690; 83735; 85025; 86140; 96365; 96367; 96372; 96375; 99285; G0378; J0610; J0744; J1170; J1644; J2270; J2405; Q9967; S0030

== ENCOUNTER → 2020-12-10 09:56 | Outpatient (BNVA) | payer SELFPAY | PROVIDERS: PCP Nurse Practitioner Family; Visit Provider Nurse Practitioner Family | DX: M54.9 Dorsalgia, unspecified (principal); R53.83 Other fatigue; M25.50 Pain in unspecified joint; D64.9 Anemia, unspecified | CPT/HCPCS: 80053; 81000; 82306; 82607; 82728; 83550; 84443; 85025; 86038; 86140; 86431 ==

== ENCOUNTER → 2021-11-15 08:22 | Outpatient (BNVA) | payer SELFPAY | PROVIDERS: PCP Nurse Practitioner Family; Visit Provider Dermatology | DX: Z01.89 Encounter for other specified special examinations (principal); I10 Essential (primary) hypertension ==

== ENCOUNTER 2022-04-05 11:05 | Outpatient (CLI) | payer SELFPAY ==
--- NOTE | 2022-04-05 11:10 | XRR_ITS ---
PROCEDURE INFORMATION: Exam: XR Chest Exam date and time: 04/05/2022 11:15 AM Age: 61 years old Clinical indication: Cough; Prior surgery; Surgery type: Hyster; Additional info: R05.3 - chronic cough TECHNIQUE: Imaging protocol: Radiologic exam of the chest. Views: 2 views. Total images: 2 COMPARISON: CR XR chest 1V [id number] 06/13/2016 9:27 AM FINDINGS: Lungs: Unremarkable. No consolidation. Pleural spaces: Unremarkable. No pleural effusion. No pneumothorax. Heart/Mediastinum: Unremarkable. No cardiomegaly. Bones/joints: Unremarkable. XR/XR chest 2V* [id number] IMPRESSION: No acute findings.
== END 2022-04-05 11:06 | disposition home or self-care (01) ==
PROVIDERS: PCP Nurse Practitioner Family; Visit Provider Nurse Practitioner Family
DX: R05.3 Chronic cough (principal)
CPT/HCPCS: 71046

== ENCOUNTER 2022-10-04 12:52 | Emergency (ER) | payer MEDICAID, SELFPAY ==
[2022-10-04 12:57] VITALS: BP 186/114; PULSE 67; RESP 19; TEMP 36.6; O2SAT 98; BMI 28.3
--- NOTE | 2022-10-04 13:10 | ECG_ITS ---
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 Measurements Intervals [place] Rate: 69 P: 7 IN: 151 QRS: -1 QRSD: 90 T: -7 QT: 357 QTc: 384 Interpretive Statements SINUS RHYTHM POSSIBLE ANTERIOR MYOCARDIAL INFARCTION , OF INDETERMINATE AGE [30 ms Q WAVE IN V3/V4, OR R < 0.2 mV IN V4] Compared to ECG 06/13/2016 12:13:14 Myocardial infarct finding now present Sinus bradycardia no longer present Electronically Signed On 10-04-2022 14:20:29 CDT by Carrillo Grimes M.D. [id number]
--- NOTE | 2022-10-04 14:08 | CTR_ITS ---
PROCEDURE INFORMATION: Exam: CT Head Without Contrast Exam date and time: 10/04/2022 2:45 PM Age: 62 years old Clinical indication: Altered mental status/memory loss TECHNIQUE: Imaging protocol: Computed tomography of the head without contrast. Radiation optimization: All CT scans at this facility use at least one of these dose optimization techniques: automated exposure control; mA and/or kV adjustment per patient size (includes targeted exams where dose is matched to clinical indication); or iterative reconstruction. REPORTING DATA: Count of CT and Cardiac NM exams in prior 12 months: This patient has received 0 known CTs and 0 known cardiac nuclear medicine studies in the 12 months prior to the current study. COMPARISON: CT head wo con* [id number] 11/02/2015 1:21 PM RADIATION DOSE METRICS: Total DLP (mGy-cm): 976 FINDINGS: Brain: Normal. No hemorrhage. Unremarkable white matter. No mass effect. Cerebral ventricles: No ventriculomegaly. Paranasal sinuses: Visualized sinuses are unremarkable. No fluid levels. Mastoid air cells: Visualized mastoid air cells are well aerated. Bones/joints: Unremarkable. No acute fracture. Soft tissues: Unremarkable. CT/CT head wo con* [id number] IMPRESSION: No acute intracranial abnormality.
--- NOTE | 2022-10-04 14:08 | XR_ITS ---
WS: [email or web address] Portable AP upright chest, 10/04/2022 Clinical Data: hypertension Comparison: PA and lateral chest, 04/05/2022 Findings: No nodules, masses or effusions are seen. The heart is normal. The pulmonary vascularity is not increased. No pneumonia or pneumothorax is seen. The aortic arch and descending thoracic aorta s how mild tortuosity. There are monitor leads on the chest wall. XR/XR chest 1V portable [id number] Impression: Atherosclerosis.
--- NOTE | 2022-10-04 14:25 | W.ED.ARRPALP ---
HPI - Arrhythmia/Palpitations General: Chief Complaint: Arrhythmia/Palpitations Stated Complaint: dizzy/states high BP Time Seen by Provider: 10/04/22 13:15 History of Present Illness: 62-year-old female presents emergency department chief complaint of having elevated blood pressure and heart rate. Patient reports having a known history of high blood pressure reports been quite sometime since he been seen by her primary care doctor for it patient reports that she is going lisinopril 10 mg tablet she reports generalized confusion and episode she had yesterday she reports no history of strokes she is concerned that she may have had one due to her generalized weakness and fatigue and generalized confusion patient reports her blood pressure when it was 170s over 90s prior to arrival she does not endorse having any chest pain or palpitations or shortness of breath associated with her symptoms. Associated symptoms: Deny anxiety, nausea or vomiting Review of Systems General: Reports: 10 or more systems reviewed and unremarkable except in HPI and below Const: Reports: fatigue and malaise; Denies: fever(s) or chills Eyes: Denies: change in vision or blurry vision Card: Denies: chest pain or palpitations Resp: Denies: dyspnea or productive cough GI: Denies: abdominal pain, nausea or vomiting : Denies: flank pain Musc: Denies: extremity pain or extremity swelling Skin/Breast: Denies: rash or pruritus Neuro: Reports: confusion Psych: Denies: anxiety or depression [place]/Lymph: Denies: easy bleeding All/Imm: Denies: urticaria, throat swelling or facial swelling [facility] PFSH: Medical History HTN (hypertension), benign Sigmoid diverticulitis Surgical History History of colonoscopy (~2008) History of conization of cervix History of elbow surgery bursa removed S/P HUGH-BSO Family History Denies family history of Anesthesia complication Bleeding disorder Social History Smoking and tobacco status: never smoked Physical Exam Narrative: EXAM NARRATIVE: Patient has a flat affect on exam howev appears in no obvious acute distress. Const: COMMON NORMALS: no acute distress, patient oriented x3 and healthy appearing HENMT: COMMON NORMALS: normocephalic and atraumatic HEAD & SCALP: normocephalic and atraumatic Eye: COMMON NORMALS: Equal, round and reactive pupils present and EOMs intact bilaterally PUPIL: Yes Equal, round and reactive pupils present Neck/C-Spine: COMMON NORMALS: full ROM, supple and no JVD Lymph: LYMPHATIC: no lymphadenopathy noted Chest: COMMONS NORMALS: normal inspection of the chest and normal palpation of entire chest wall Resp: COMMON NORMALS: normal respiratory effort, No retractions and clear to auscultation bilaterally EFFORT & INSPECTION: Yes able to speak in complete sentences and Yes symmetric chest movement AUSCULTATION: clear to auscultation bilaterally Cardio: COMMON NORMALS: no JVD, regular rate and regular rhythm RATE: regular rate RHYTHM: regular rhythm GI: COMMON NORMALS: Normal to inspection, nondistended, normoactive bowel sounds present, Soft to palpation and non-tender INSPECTION: Yes normal to inspection PALPATION: Yes Soft to palpation : COMMON NORMALS: Yes no CVA tenderness BLADDER/KIDNEY EXAM: Yes no CVA tenderness Back/Pelvis: COMMON NORMALS: no CVA tenderness Extremity: COMMON NORMALS: normal to inspection and full ROM Neuro: COMMON NORMALS: patient oriented x3, CN's II-XII intact bilaterally, moves all extremities and no focal motor deficits Psych: COMMON NORMALS: mental status grossly normal, Normal thought process present, cooperative and normal affect THOUGHT PROCESS: Normal thought process present Skin: COMMON NORMALS: no rashes or lesions noted GENERAL SKIN EXAM: no rashes or lesions noted Course Vital Signs: Vital signs: Vital Signs Temperature 97.9 F 10/04/22 12:57 Pulse Rate 86 10/04/22 18:01 Respiratory Rate 18 10/04/22 18:01 Blood Pressure 131/107 10/04/22 18:01 Pulse Oximetry 96 10/04/22 18:01 Oxygen Delivery Me thod Room Air 10/04/22 12:57 MDM - Arrhythmia/Palpitations Medical Decision Making Due to the patient's symptoms and condition basic lab work and cardiac imaging and work-up will be obtained we will continue to follow. Current blood pressure is 149/90 not require any additional intervention at this time. Lab work otherwise came back unremarkable patient was started on additional occasions for her blood pressure management advised for the follow-up primary care in 3 to 5 days in which was advised to return the interim if any of her symptoms persist or worse. Lab Data 10/04/22 14:20 10/04/22 14:20 Radiology Impressions Chest X-Ray 10/04/22 14:08 Impression: Atherosclerosis. Head CT 10/04/22 14:08 IMPRESSION: No acute intracranial abnormality. Laboratory Results WBC 6.0 10^3/uL (4.0-10.0) 10/04/22 14:20 RBC 4.33 10^6/uL (4.1-5.3) 10/04/22 14:20 Hgb 13.8 g/dL (11.5-15.3) 10/04/22 14:20 Hct 40.8 % (37.0-47.0) 10/04/22 14:20 MCV 94.2 fl (81-99) 10/04/22 14:20 MCH 31.9 pg (28.0-34.0) 10/04/22 14:20 MCHC 33.8 g/dL (30.0-36.0) 10/04/22 14:20 RDW 12.3 % (12.1-15.1) 10/04/22 14:20 Plt Count 260 10^3/cmm (130-400) 10/04/22 14:20 MPV 9.6 fL (7.4-10.4) 10/04/22 14:20 Neut % (Auto) 61.9 % 10/04/22 14:20 Lymph % (Auto) 28.5 % 10/04/22 14:20 [place] % (Auto) 8.3 % 10/04/22 14:20 Eos % (Auto) 0.7 % 10/04/22 14:20 Baso % (Auto) 0.3 % 10/04/22 14:20 Neut # (Auto) 3.71 10^3/uL (1.8-7.7) 10/04/22 14:20 Lymph # (Auto) 1.7 10^3/uL (0.8-4.8) 10/04/22 14:20 [place] # (Auto) 0.5 10^3/uL (0.2-0.9) 10/04/22 14:20 Eos # (Auto) 0.0 10^3/uL (0.0-0.8) 10/04/22 14:20 Baso # (Auto) 0.0 10^3/uL (0.0-0.1) 10/04/22 14:20 Nucleated RBC % (auto) 0 % 10/04/22 14:20 Nucleated RBCs # 0.0 /100WBC 10/04/22 14:20 PT 12.50 SECONDS (12.1-14.9) 10/04/22 14:20 INR 0.91 (0.8-1.2) 10/04/22 14:20 APTT 29.0 SECONDS (23.9-36.7) 10/04/22 14:20 Sodium 139 mmol/L (136-145) 10/04/22 14:20 Potassium 4.0 mmol/L (3.5-5.1) 10/04/22 14:20 Chloride 104 mmol/L (98-107) 10/04/22 14:20 Carbon Dioxide 26 mmol/L (22-29) 10/04/22 14:20 Anion Gap 13.0 (5-19) 10/04/22 14:20 BUN 13 mg/dL (8-23) 10/04/22 14:20 Creatinine 0.7 mg/dL (0.5-0.9) 10/04/22 14:20 GFR Calculation 85.4 mL/min (90-130) L 10/04/22 14:20 Glucose 84 mg/dL (65-115) 10/04/22 14:20 Calculated Osmolality 287 mOsm/kg (285-295) 10/04/22 14:20 Calcium 9.6 mg/dL (8.5-10.5) 10/04/22 14:20 Total Bilirubin 0.5 mg/dL (0.15-1.2) 10/04/22 14:20 AST 19 U/L (0-32) 10/04/22 14:20 ALT 14 U/L (0-33) 10/04/22 14:20 Alkaline Phosphatase 101 U/L (35-105) 10/04/22 14:20 Troponin T Baseline 6 ng/L (0-10) 10/04/22 14:20 Troponin T 120 Minute 9.72 ng/L (0-10) 10/04/22 16:43 Delta Troponin T 3.72 ABS# (0-10) 10/04/22 16:43 NT-Pro-B Natriuret Pep 62 pg/mL (0-125) 10/04/22 14:20 Total Protein 7.4 g/dL (6.6-8.7) 10/04/22 14:20 Albumin 4.4 g/dL (3.5-5.2) 10/04/22 14:20 Globulin 3.0 g/dL (1.3-4.6) 10/04/22 14:20 Urine Color Colorless (Yellow) 10/04/22 14:38 Urine Appearance Clear (CLEAR) 10/04/22 14:38 Urine pH 6.5 (5-7) 10/04/22 14:38 Ur Specific [place] 1.005 (1.005-1.030) 10/04/22 14:38 Urine Protein Neg (Negative) 10/04/22 14:38 Urine Glucose (UA) Norm (Normal) 10/04/22 14:38 Urine Ketones Negative (Negative) 10/04/22 14:38 Urine Blood Neg (Negative) 10/04/22 14:38 Urine Nitrate Negative (Negative) 10/04/22 14:38 Urine Bilirubin Neg (Negative) 10/04/22 14:38 Urine Urobilinogen Norm mg/dL (Negative) 10/04/22 14:38 Ur Leukocyte Esterase Negative (Negative) 10/04/22 14:38 Urine Opiates Screen Negative ng/mL (Negative) 10/04/22 14:38 Ur Barbiturates Screen Negative ng/mL (Negative) 10/04/22 14:38 Ur Phencyclidine Scrn Negative ng/mL (Negative) 10/04/22 14:38 Ur Amphetamines Screen Negative ng/mL (Negative) 10/04/22 14:38 U Benzodiazepines Scrn Negative ng/mL (Negative) 10/04/22 14:38 Urine Cocaine Screen Negative ng/mL (Negative) 10/04/22 14:38 U Marijuana (THC) Screen Negative ng/mL (Negative) 10/04/22 14:38 EKG Data Normal sinus rhythm rate of [address] segment elevations or depressions appreciated: Other EKG comments: Chest X-Ray 10/04/22 14:08 Impression: Atherosclerosis. Head CT 10/04/22 14:08 IMPRESSION: No acute intracranial abnormality. Discharge Plan Discharge Patient Disposition: Home Clinical Impression: Hypertension, Atypical chest pain Condition: Stable Prescriptions: New hydrochlorothiazide 25 mg tablet 25 mg PO DAILY Qty: 10 0RF amlodipine 5 mg tablet 5 mg PO DAILY Qty: 10 0RF clonidine HCl 0.1 mg tablet 0.1 mg PO Q8H PRN (Reason: hypertension) 1 Days Qty: 10 0RF No Action albuterol sulfate [ProAir HFA] 90 mcg/actuation HFA aerosol inhaler 2 puff inhalation Q6H PRN (Reason: shortness of breath or wheezing) Qty: 6.7 0RF lisinopril 10 mg tablet 10 mg PO DAILY Qty: 90 0RF [place] 3 Fish Oil 684-1,200 mg Capsule,Delayed Release(Dr/Ec) 1 cap PO DAILY omeprazole 40 mg capsule,delayed release(DR/EC) 40 mg PO BID Discharge Orders: Discharge ED (Routine); Ordered 10/04/22 Ordered By: Franc Wood Referrals: Riri Mcadams FNP [Primary Care Provider] - 1-3 days Discharge Diet: Cardiac Discharge Activity: Increase activity as tolerated Patient Instructions: Hypertension, Opioid Safety, Pain Management Activity Restrictions/Additional Instructions: Please further follow-up primary care doctor in 2 to 3 days, take medication as prescribed and please return the interim if any of your symptoms persist or worse. Coding Level of Care Code ED Long Winder Tender for Hasmukh Sue
[2022-10-04 14:35] LABS: Basophils % 0.3 %; Eosinophils % 0.7 %; Hematocrit 40.8 % (37.0-47.0); Hemoglobin 13.8 g/dL (11.5-15.3); Lymphocytes # 1.7 10^3/uL (0.8-4.8); Lymphocytes % 28.5 %; Mean Corpuscular HGB Conc 33.8 g/dL (30.0-36.0); Mean Corpuscular Hemoglobin 31.9 pg (28.0-34.0); Mean Corpuscular Volume 94.2 fl (81-99); Mean Platelet Volume 9.6 fL (7.4-10.4); Monocytes # 0.5 10^3/uL (0.2-0.9); Monocytes % 8.3 %; Neutrophils # 3.71 10^3/uL (1.8-7.7); Neutrophils % 61.9 %; Nucleated Red Blood Cells % 0 %; Platelet Count 260 10^3/cmm (130-400); Red Blood Count 4.33 10^6/uL (4.1-5.3); Red Cell Distribution Width 12.3 % (12.1-15.1)
[2022-10-04 14:46] LABS: INR 0.91 (0.8-1.2)
[2022-10-04 14:54] LABS: Troponin(5th) Baseline 6 ng/L (0-10)
[2022-10-04 15:03] LABS: Alanine Aminotransferase 14 U/L (0-33); Albumin Level 4.4 g/dL (3.5-5.2); Alkaline Phosphatase 101 U/L (35-105); Aspartate Amino Transferase 19 U/L (0-32); Blood Urea Nitrogen 13 mg/dL (8-23); Calcium 9.6 mg/dL (8.5-10.5); Carbon Dioxide 26 mmol/L (22-29); Chloride 104 mmol/L (98-107); Glomerular Filtration Rate 85.4 mL/min (90-130); Glucose 84 mg/dL (65-115); NT Pro B Type Natriuretic Pept 62 pg/mL (0-125); Osmolality Calculated 287 mOsm/kg (285-295); Sodium 139 mmol/L (136-145); Total Bilirubin 0.5 mg/dL (0.15-1.2); Total Protein 7.4 g/dL (6.6-8.7)
[2022-10-04] MEDS: sodium chloride 0.9% 1,000 ML 999 ML IV (15:20)
[2022-10-04 15:29] LABS: Add Urine Microscopic? NO; Charge for UA Resulting for Rev
[2022-10-04 15:34] LABS: Bilirubin Urine Neg (Negative); Blood Urine Neg (Negative); Glucose Urine UA Norm (Normal); Ketones Urine Negative (Negative); Leukocyte Esterase Urine Negative (Negative); Nitrate Urine Negative (Negative); Protein Urine Neg (Negative); Specific Gravity, Urine 1.005 (1.005-1.030); Urine Appearance Clear (CLEAR); Urine Color Colorless (Yellow); Urobilinogen Urine Norm (Negative); pH Urine 6.5 (5-7)
[2022-10-04] MEDS: nitroglycerin 0.4 mg sublingual Tablet SUBLINGUAL (15:41)
--- NOTE | 2022-10-04 15:43 | ECG_ITS ---
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 Measurements Intervals [place] Rate: 65 P: 29 NE: 185 QRS: 4 QRSD: 93 T: 11 QT: 396 QTc: 413 Interpretive Statements SINUS RHYTHM POSSIBLE ANTERIOR MYOCARDIAL INFARCTION , PROBABLY OLD [30 ms Q WAVE IN V3/V4, OR R < 0.2 mV IN V4] Compared to ECG 10/04/2022 13:10:46 No significant changes Electronically Signed On 10-05-2022 21:25:17 CDT by Leisa Alves M.D. [email or web address]InvoiceSharingwalth[facility] hospitalCylandemetro[facility].[employer]/store/OM/[id number]
[2022-10-04 15:55] LABS: Amphetamines Screen Urine Negative (Negative); Barbiturates Screen Urine Negative (Negative); Benzodiazepines Screen Urine Negative (Negative); Cocaine Screen Urine Negative (Negative); Opiate Screen Urine Negative (Negative); PCP Screen Urine Negative (Negative); THC Screen Urine Negative (Negative)
[2022-10-04] MEDS: hyDRALAzine 20 mg/mL INJ 1 mL 5 MG IVP (16:16)
[2022-10-04 17:42] LABS: Troponin 5 2HR 9.72 ng/L (0-10)
[2022-10-04 17:44] LABS: Troponin 5 2HR Delta 3.72 ABS# (0-10)
[2022-10-04] MEDS: hyDRALAzine 20 mg/mL INJ 1 mL 10 MG IVP (17:53)
[2022-10-04 18:01] VITALS: BP 131/107; PULSE 86; RESP 18; O2SAT 96
== END 2022-10-04 18:31 | disposition home or self-care (01) ==
PROVIDERS: Emergency Provider Emergency Medicine; PCP Nurse Practitioner Family
DX: I10 Essential (primary) hypertension (principal); R07.89 Other chest pain
CPT/HCPCS: 36415; 70450; 71045; 80053; 80306; 81003; 83880; 84484; 85025; 85610; 85730; 93005; 96361; 96374; 96376; 99285; J0360; J7030

== ENCOUNTER → 2022-10-12 10:17 | Outpatient (BNVA) | payer MEDICAID, SELFPAY | PROVIDERS: PCP Nurse Practitioner Family; Visit Provider Nurse Practitioner Family | DX: T14.8XXA Other injury of unspecified body region, initial encounter (principal); W57.XXXA Bitten or stung by nonvenomous insect and other nonvenomous arthropods, initial encounter | CPT/HCPCS: 86003; 86008 ==

== ENCOUNTER 2022-11-27 08:49 | Outpatient (CLI) | payer MEDICAID, SELFPAY ==
--- NOTE | 2022-11-27 09:15 | US_ITS ---
WS: [email or web address] THYROID ULTRASOUND HISTORY: E07.9 - Disorder of thyroid, unspecified COMPARISON: None available. Right lobe: 1.5 cm x 1.3 cm x 3.8 cm (w x ap x l). Volume: 3.7 cm3. Normal size and echotexture. No significant are dominant nodules are present. Left lobe: 1.2 cm x 1.0 cm x 3.9 cm (w x ap x l). Volume: 2.5 cm3. Normal size and echotexture. No significant or dominant nodules are present. Isthmus: 0.2 cm. Bilateral cervical chain lymph nodes are identified. Lymph nodes are normal. US/US thyroid [id number] IMPRESSION: Normal thyroid ultrasound.
== END 2022-11-27 08:50 | disposition home or self-care (01) ==
PROVIDERS: PCP Nurse Practitioner Family; Visit Provider Nurse Practitioner Family
DX: E07.9 Disorder of thyroid, unspecified (principal)
CPT/HCPCS: 76536

== ENCOUNTER → 2023-02-06 09:54 | Outpatient (BNVA) | payer MEDICAID, SELFPAY | PROVIDERS: PCP Nurse Practitioner Family; Visit Provider Nurse Practitioner Family | DX: R30.0 Dysuria (principal) | CPT/HCPCS: 81000 ==

== ENCOUNTER → 2023-07-11 11:17 | Outpatient (BNVA) | payer MEDICAID, SELFPAY | PROVIDERS: PCP Nurse Practitioner Family; Visit Provider Nurse Practitioner Family | DX: R00.2 Palpitations (principal); I10 Essential (primary) hypertension; R53.83 Other fatigue; F41.9 Anxiety disorder, unspecified; Z79.899 Other long term (current) drug therapy | CPT/HCPCS: 80053; 80061; 84439; 84443; 84481; 85025 ==

== ENCOUNTER → 2023-09-26 11:04 | Outpatient (BNVA) | payer MEDICAID, SELFPAY | PROVIDERS: PCP Nurse Practitioner Family; Visit Provider Nurse Practitioner Family | DX: E78.1 Pure hyperglyceridemia; I10 Essential (primary) hypertension; M25.50 Pain in unspecified joint | CPT/HCPCS: 80053; 80061; 86038; 86431 ==

== ENCOUNTER 2023-10-02 10:42 | Outpatient (CLI) | payer MEDICAID, SELFPAY ==
--- NOTE | 2023-10-02 10:46 | XR_ITS ---
WS: [email or web address] XR hand RT min 3V* [id number] REASON FOR EXAM: M79.641 - Pain in right hand FINDINGS: No fracture or focal bone lesion. No periosteal reaction or bone erosion. Minimal joint space narrowing with mild subchondral sclerosis and osteophytosis in the DIP joints of the fingers and thumb. Similar arthropathic change in the MCP joint of the thumb. No soft tissue abnormality. XR/XR hand RT min 3V* [id number] IMPRESSION: Mild osteoarthritis as above.
--- NOTE | 2023-10-02 11:15 | US_ITS ---
WS: [email or web address] ULTRASOUND SOFT TISSUES area of interest upper mid chest. HISTORY: R22.0 - Localized swelling, mass and lump, head COMPARISON: None available. TECHNIQUE: 2-D and color Doppler imaging is submitted. No masses identified in what appears to be the suprasternal notch. No solid or cystic masses. No incr eased vascularity. US/US soft tissue head neck [id number] IMPRESSION: No abnormalities noted in the region of the suprasternal notch. If there is con tinued concern for mass consider follow-up chest CT with IV contrast.
== END 2023-10-02 10:43 | disposition home or self-care (01) ==
PROVIDERS: PCP Nurse Practitioner Family; Visit Provider Nurse Practitioner Family
DX: M79.641 Pain in right hand (principal); R22.0 Localized swelling, mass and lump, head; R22.1 Localized swelling, mass and lump, neck; M19.041 Primary osteoarthritis, right hand
CPT/HCPCS: 73130; 76536

== ENCOUNTER 2023-11-30 13:22 | Outpatient (CLI) | payer MEDICAID, SELFPAY ==
--- NOTE | 2023-11-30 14:30 | MM_ITS ---
WS: [email or web address] SCREENING DIGITAL BREAST TOMOSYNTHESIS MAMMOGRAM WITH CAD HISTORY: Z12.39 - Encounter for other screening for malignant neop... COMPARISON: None available. Bilateral CC and MLO with tomosynthesis and synthetic mammography submitted. Computer aided detection analyzed. Breast composition: There are scattered areas of fibroglandular density. Well-circumscribed 5 x 6 mm mass in the posterior LEFT breast just medial to the nipple line. Nodule near the 3:00 axis. Recommen d ultrasound. The remaining LEFT breast is negative. RIGHT breast is negative. MM/[place] [id number] IMPRESSION: BI-RADS: 0-Incomplete: Need additional imaging evaluation FOLLOW UP: Need Additional Imaging Recommendation: LEFT breast ultrasound, limited. Evaluate for possible mass, cy st or solid mass, 3:00 axis posterior against the chest wall.
--- NOTE | 2023-11-30 15:00 | XR_ITS ---
WS: [email or web address] DEXA (DUAL ENERGY X-RAY ABSORPTIOMETRY) Bone mineral density was performed using a Vee24 machine. HISTORY: R93.7 - Abnormal findings on diagnostic imaging of other ... COMPARISON: None available. Lumbar spine BMD (L1-L4): 0.891 g/cm2 T score: -2.4 Z score: -1.7 Total hip BMD: Left: 0.791 g/cm2. T score: -1.7 Z score: -1.1 Right: 0.775 g/cm2. T score: -1.8 Z score: -1.3 10 year probability of a major osteoporotic fracture is 15.1%. XR/XR DEXA axial skeleton* [id number] IMPRESSION: OSTEOPENIA based upon the WHO classification for females.
== END 2023-11-30 13:23 | disposition home or self-care (01) ==
LOC: RAD 13:23
PROVIDERS: PCP Nurse Practitioner Family; Visit Provider Nurse Practitioner Family
DX: Z12.31 Encounter for screening mammogram for malignant neoplasm of breast (principal); Z13.820 Encounter for screening for osteoporosis; R93.7 Abnormal findings on diagnostic imaging of other parts of musculoskeletal system; R92.323 Mammographic fibroglandular density, bilateral breasts; N63.42 Unspecified lump in left breast, subareolar; M85.80 Other specified disorders of bone density and structure, unspecified site
CPT/HCPCS: 77063; 77067; 77080

== ENCOUNTER 2023-12-24 10:04 | Outpatient (CLI) | payer MEDICAID, SELFPAY ==
--- NOTE | 2023-12-24 10:00 | US_ITS ---
WS: [email or web address] ULTRASOUND LEFT BREAST HISTORY: Abnormality seen on recent screening mammogram. COMPARISON: 11/30/2023 TECHNIQUE: 2-D and Doppler. Ultrasound is performed in the LEFT breast posteriorly along the 3-9 o'clock axis. This mass is proba jennifer closer to the 9:00 axis than the 3:00 axis. There is no abnormality identified on the ultrasound. There are several very small masses seen on the recent mammogram. These may be vessels visualized on and and/or small lymph nodes. These are well-circumscribed. Without visualizing this area by ultraso und it would be difficult to biopsy. US/US breast LT limited* [id number] IMPRESSION: BI-RADS: 3-Probably Benign FOLLOW-UP: 6 Month Follow-up Recommend diagnostic LEFT mammogram follow-up in 6 months and LEFT breast ultra sound. Recommend reevaluation of the breast nodule posteriorly in 6 months.
== END 2023-12-24 10:05 | disposition home or self-care (01) ==
LOC: RAD 10:05
PROVIDERS: PCP Nurse Practitioner Family; Visit Provider Nurse Practitioner Family
DX: R92.8 Other abnormal and inconclusive findings on diagnostic imaging of breast (principal); N63.20 Unspecified lump in the left breast, unspecified quadrant
CPT/HCPCS: 76642

== ENCOUNTER 2024-01-23 08:00 | Day surgery (SDC) | payer MEDICAID, SELFPAY ==
[2024-01-23 08:15] VITALS: BP 152/79; PULSE 78; RESP 18; TEMP 36.4; O2SAT 95
[2024-01-23] MEDS: sodium chloride 0.9% 1,000 ML 30 ML IV (08:24)
--- NOTE | 2024-01-23 08:43 | ANES.PREANE2 ---
Pre-Anesthetic Assessment Height/Weight: Height 5 ft 5 in Weight 170 lb Temp Pulse Resp BP Pulse Ox O2 Del Method 97.6 F 78 18 152/79 95 Room Air 01/23/24 08:15 01/23/24 08:15 01/23/24 08:15 01/23/24 08:15 01/23/24 08:15 01/23/24 08:15 Operation Date: 01/23/24 09:15 Proposed Procedures p EGD 06063, 65118, G0105, K21.9, Z12.11, Z87.19(Not Applicable) - Luis A Bautista DO s Colonoscopy(Not Applicable) - Luis A Bautista DO Last intake: Intake Last Liquid Date 01/22/24 Last Liquid Time 20:30 Last Solid Date 01/21/24 Last Solid Time 18:30 Social No alcohol and No tobacco Exam alert, oriented x 3, clear to auscultation bilaterally and regular rate & rhythm Airway Submandibular: within normal limits Cervical ROM: within normal limits Mallampati: Class II Dentition: full Pulmonary None reported Anesthetic Plan ASA status: 2 Anesthesia: MAC Other: No prior issues with anesthesia Patient completed prep Alpha-gal noted, team is aware Hypertension, controlled on metoprolol and hydrochlorothiazide Patient takes daily furosemide Denies cardiac or pulmonary issues Patient struggles with uncontrolled GERD, currently no symptoms at this moment Plan for MAC anesthesia Medications/Allergies Home Medications Medication Instructions Recorded Confirmed Last Taken Type omega-3 fatty acids-fish oil 684 1 cap PO DAILY 10/04/22 01/21/24 01/22/24 History mg-1,200 mg capsule,delayed release epinephrine 0.3 mg/0.3 mL 0.3 mg (0.3 mL) IM Q4H PRN 11/28/22 01/21/24 Unknown Rx injection, auto-injector (EpiPen anaphylaxis #2 ea 2-Kev) metoprolol succinate 50 mg 50 mg PO DAILY #90 tabs 10/16/23 01/21/24 01/23/24 Rx tablet,extended release 24 hr furosemide 20 mg tablet 20 mg PO DAILY 11/14/23 01/21/24 01/22/24 History pantoprazole 40 mg tablet,delayed 40 mg PO BID 6 weeks #84 tabs 11/19/23 01/21/24 01/22/24 Rx release (Protonix) aspirin 81 mg tablet 81 mg PO DAILY 01/21/24 01/21/24 01/22/24 History hydrochlorothiazide 25 mg tablet 25 mg PO DAILY 01/21/24 01/21/24 01/23/24 History vitamin D3-vitamin K2 (MK4) 14 applic PO DAILY 01/21/24 01/21/24 01/22/24 History Allergies Allergy/AdvReac Type Severity Reaction Status Date / Time Alpha-Gal Allergy Unknown Verified 01/21/24 09:31 (Kpkilprnx-Pzzyf-1,3-Gala Current Medications Generic Name Dose Route Start Last Admin Trade Name Freq PRN Reason Stop Dose Admin Sodium Chloride 1,000 mls @ 30 mls/hr 01/23/24 08:15 01/23/24 08:24 Sodium Chloride 0.9% IV 01/24/24 08:14 30 mls/hr .Q24H MIGUEL ANGEL Administration PFSH Anesthesia Medical History (Updated 12/03/23 @ 12:32 by AYUSH Ward) History of diverticulitis Dysuria HTN (hypertension), benign Sigmoid diverticulitis Surgical History History of conization of cervix History of elbow surgery bursa removed History of colonoscopy (~2008) S/P HUGH-BSO Family History Denies family history of Anesthesia complication Bleeding disorder Social History Smoking and tobacco/nicotine status: never used tobacco/nicotine Alcohol intake: never Substance/Drug Use: never Adopted: No Caregiver/support person: No Lives independently: No Household members: family service: No Sexually active: Yes Do you think of yourself as: Straight/Heterosexual Current gender identity: Female Shelly/Scientology: Sikhism Data Anesthesia Cardiac Studies: No Data to Display
--- NOTE | 2024-01-23 09:09 | P.HP_ITS ---
Providers/Chief Complaint Primary Care Provider: AYUSH Branham Chief Complaint: K21.9, Z12.11, Z87.19 History of Present Illness Luly Dumont is a 63 year old female Review of Systems General: Reports: 10 or more systems reviewed and unremarkable except in HPI and below Medications/Allergies Home Medications Medication Instructions Recorded Confirmed Last Taken Type omega-3 fatty acids-fish oil 684 1 cap PO DAILY 10/04/22 01/21/24 01/22/24 History mg-1,200 mg capsule,delayed release epinephrine 0.3 mg/0.3 mL 0.3 mg (0.3 mL) IM Q4H PRN 11/28/22 01/21/24 Unknown Rx injection, auto-injector (EpiPen anaphylaxis #2 ea 2-Kev) metoprolol succinate 50 mg 50 mg PO DAILY #90 tabs 10/16/23 01/21/24 01/23/24 Rx tablet,extended release 24 hr furosemide 20 mg tablet 20 mg PO DAILY 11/14/23 01/21/24 01/22/24 History pantoprazole 40 mg tablet,delayed 40 mg PO BID 6 weeks #84 tabs 11/19/23 01/21/24 01/22/24 Rx release (Protonix) aspirin 81 mg tablet 81 mg PO DAILY 01/21/24 01/21/24 01/22/24 History hydrochlorothiazide 25 mg tablet 25 mg PO DAILY 01/21/24 01/21/24 01/23/24 History vitamin D3-vitamin K2 (MK4) 14 applic PO DAILY 01/21/24 01/21/24 01/22/24 History Allergies Allergy/AdvReac Type Severity Reaction Status Date / Time Alpha-Gal Allergy Unknown Verified 01/21/24 09:31 (Msuxbkjaa-Uqwzo-1,3-Gala PFSH Acute PFSH: Medical History (Updated 12/03/23 @ 12:32 by AYUSH Ward) History of diverticulitis Dysuria HTN (hypertension), benign Sigmoid diverticulitis Surgical History History of conization of cervix History of elbow surgery bursa removed History of colonoscopy (~2008) S/P HUGH-BSO Family History Denies family history of Anesthesia complication Bleeding disorder Social History Smoking and tobacco/nicotine status: never used tobacco/nicotine Alcohol intake: never Substance/Drug Use: never Adopted: No Caregiver/support person: No Lives independently: No Household members: family service: No Sexually active: Yes Do you think of yourself as: Straight/Heterosexual Current gender identity: Female Shelly/Jehovah'S Witness: Nondenominational Vitals/I&O/Wt Last Vital Signs Temp 97.6 F 01/23/24 08:15 Pulse 78 01/23/24 08:15 Resp 18 01/23/24 08:15 BP 152/79 01/23/24 08:15 Pulse Ox 95 01/23/24 08:15 O2 Del Method Room Air 01/23/24 08:15 Weight last 48 hrs Weight 170 lb A&P Assessment and plan (1) Screen for colon cancer: (2) GERD (gastroesophageal reflux disease): (3) History of diverticulitis: Plan EGD and colonoscopy Attestations Medical Necessity Statement*: Home Coding Level of Care Code Acute Code for Chg Fwd Diagnoses Screen for colon cancer Z12.11 GERD (gastroesophageal reflux disease) K21.9 History of diverticulitis Z87.19
[2024-01-23] MEDS: EPINEPHrine 1 mg/mL INJ XX (09:20)
[2024-01-23 09:41] VITALS: BP 136/78; PULSE 65; RESP 18; TEMP 36.3; O2SAT 92
[2024-01-23 09:53] VITALS: BP 125/79; PULSE 56; RESP 16; O2SAT 95
--- NOTE | 2024-01-23 10:24 | ANE.PACU2 ---
Inpatient post-anesthesia follow up: Airway intact: Yes Vital signs: Temperature 97.4 F Pulse Rate 56 Respiratory Rate 16 Blood Pressure 125/79 Pulse Oximetry 95 Oxygen Delivery Me thod Room Air Oxygen Flow Rate Fraction of Inspir ed Oxygen Hydration adequate: Yes Nausea and vomiting: No Pain level: 1 Mental status: Baseline
== END 2024-01-23 10:24 | disposition home or self-care (01) ==
PROVIDERS: PCP Nurse Practitioner Family; Visit Provider Surgery
PROC: 0DJ08ZZ Inspection of Upper Intestinal Tract, Via Natural or Artificial Opening Endoscopic (ICD-10-PCS; CPT 43235; principal; 2024-01-23 09:15)
PROC: 0DJD8ZZ Inspection of Lower Intestinal Tract, Via Natural or Artificial Opening Endoscopic (ICD-10-PCS; CPT 45378; 2024-01-23 09:15)
DX: Z12.11 Encounter for screening for malignant neoplasm of colon (principal); Z87.19 Personal history of other diseases of the digestive system; K21.9 Gastro-esophageal reflux disease without esophagitis; I10 Essential (primary) hypertension; K29.50 Unspecified chronic gastritis without bleeding; K51.40 Inflammatory polyps of colon without complications; K57.30 Diverticulosis of large intestine without perforation or abscess without bleeding; Z79.82 Long term (current) use of aspirin
CPT/HCPCS: 43239; 43255; 45385; 88305; 88342; J0171; J2704; J7030

== ENCOUNTER 2024-06-18 13:07 | Outpatient (CLI) | payer MEDICAID, SELFPAY ==
--- NOTE | 2024-06-18 13:30 | CTR_ITS ---
PROCEDURE INFORMATION: Exam: CTA Chest With Contrast Exam date and time: 06/18/2024 2:10 PM Age: 63 years old Clinical indication: Left-sided; Patient HX: Left sided chest pains on inspiration; Additional info: R07.9 - chest pain on inspiration approval number [id number] good TECHNIQUE: Imaging protocol: Computed tomographic angiography of the chest with contrast. Exam focused on the arteries. 3D rendering (Not supervised by radiologist): MIP and/or 3D reconstructed images were created by the technologist. Radiation optimization: All CT scans at this facility use at least one of these dose optimization techniques: automated exposure control; mA and/or kV adjustment per patient size (includes targeted exams where dose is matched to clinical indication); or iterative reconstruction. Contrast material: OMNIPAQUE 350; Contrast volume: 100 ml; Contrast route: INTRAVENOUS (IV); COMPARISON: CR XR chest 1V portable [id number] 10/04/2022 1:34 PM RADIATION DOSE METRICS: Total DLP (mGy-cm): 385.11 FINDINGS: Pulmonary arteries: No evidence of pulmonary embolus. Aorta: Unremarkable. No aortic aneurysm. No aortic dissection. Lungs: Unremarkable. No consolidation. No masses. Pleural spaces: Unremarkable. No pneumothorax. No pleural effusion. Heart: Unremarkable. No cardiomegaly. No pericardial effusion. Lymph nodes: Mild bilateral hilar and mediastinal adenopathy, nonspecific in appearance. Bones/joints: Unremarkable. No acute fracture. Soft tissues: Unremarkable. CT/CT angio chest PE protcl [id number] IMPRESSION: No acute cardiopulmonary disease. Mild and nonspecific central adenopathy.
[2024-06-18 14:11] LABS: Blood Urea Nitrogen 13 mg/dL (8-23); Glomerular Filtration Rate 63.7 mL/min (90-130)
[2024-06-18] MEDS: iohexol 350 mg/mL 500 mL Btl (per mL) IV (14:20)
== END 2024-06-18 13:08 | disposition home or self-care (01) ==
LOC: RAD 13:09
PROVIDERS: PCP Nurse Practitioner Family; Visit Provider Nurse Practitioner Family
DX: R07.9 Chest pain, unspecified (principal); R59.9 Enlarged lymph nodes, unspecified
CPT/HCPCS: 36415; 71275; 82565; 84520; 85378

== ENCOUNTER → 2024-06-23 09:18 | Outpatient (BNVA) | payer MEDICAID, SELFPAY | PROVIDERS: PCP Nurse Practitioner Family; Visit Provider Nurse Practitioner Family | DX: R76.8 Other specified abnormal immunological findings in serum (principal); R59.0 Localized enlarged lymph nodes | CPT/HCPCS: 85025; 86038 ==

== ENCOUNTER 2024-07-15 08:37 | Outpatient (CLI) | payer MEDICAID, SELFPAY ==
--- NOTE | 2024-07-15 09:00 | MM_ITS ---
WS: [id number] Diagnostic LEFT MAMMOGRAM WITH DIGITAL BREAST TOMOSYNTHESIS. LEFT breast ultrasound, limited. HISTORY: 6-month follow-up. COMPARISON: 11/30/2023, 12/24/2023 LEFT breast in CC, MLO projections and true ML submitted with digital breast tomosynthesis and SM. Breast composition: There are scattered areas of fibroglandular density. Cluster of well-circumscribed masses in the posterior LEFT breast against the chest wall are just above the nipple line and just medial. No obvious interval change since 12/24/2023. There is an additional well-circumscribed cyst at 7:00 measuring 5 mm. LEFT breast ultrasound, limited. Reidentified is the slightly complex cyst at 9:00 measuring 6 x 5 x 3 cm. On today's ultrasound cluster of cysts is noted deep against the chest wall which corresponds to the mammographic abnormality. These are near 10:00, 4 cm from the nipple. Some of these low-attenuation masses contain low-level echoes which is probably related to their deep position. The largest measures 0.5 x 0.5 x 0.4 cm. MM/MM diag LT tomosynthesis [id number] IMPRESSION: BI-RADS: 2 - Benign. FOLLOW UP: 1 Year Follow-up Recommend return to annual screening mammography.
--- NOTE | 2024-07-15 09:30 | US_ITS ---
WS: [id number] Diagnostic LEFT MAMMOGRAM WITH DIGITAL BREAST TOMOSYNTHESIS. LEFT breast ultrasound, limited. HISTORY: 6-month follow-up. COMPARISON: 11/30/2023, 12/24/2023 LEFT breast in CC, MLO projections and true ML submitted with digital breast tomosynthesis and SM. Breast composition: There are scattered areas of fibroglandular density. Cluster of well-circumscribed masses in the posterior LEFT breast against the chest wall are just above the nipple line and just medial. No obvious interval change since 12/24/2023. There is an additional well-circumscribed cyst at 7:00 measuring 5 mm. LEFT breast ultrasound, limited. Reidentified is the slightly complex cyst at 9:00 measuring 6 x 5 x 3 cm. On today's ultrasound cluster of cysts is noted deep against the chest wall which corresponds to the mammographic abnormality. These are near 10:00, 4 cm from the nipple. Some of these low-attenuation masses contain low-level echoes which is probably related to their deep position. The largest measures 0.5 x 0.5 x 0.4 cm. US/US breast LT limited* [id number] IMPRESSION: BI-RADS: 2 - Benign. FOLLOW UP: 1 Year Follow-up Recommend return to annual screening mammography.
== END 2024-07-15 08:38 | disposition home or self-care (01) ==
PROVIDERS: PCP Nurse Practitioner Family; Visit Provider Nurse Practitioner Family
DX: R92.8 Other abnormal and inconclusive findings on diagnostic imaging of breast (principal); R92.322 Mammographic fibroglandular density, left breast; N63.24 Unspecified lump in the left breast, lower inner quadrant; N63.25 Unspecified lump in the left breast, overlapping quadrants; N63.22 Unspecified lump in the left breast, upper inner quadrant
CPT/HCPCS: 76642; 77061; G0279

== ENCOUNTER 2024-08-06 09:29 | Outpatient (CLI) | payer MEDICAID, SELFPAY ==
--- NOTE | 2024-08-06 09:45 | US_ITS ---
WS: [id number] RIGHT UPPER QUADRANT ULTRASOUND HISTORY: R10.811 - Right upper quadrant abdominal tenderness COMPARISON: 03/02/2018 Liver: 14.0 cm in length. Normal size liver and echogenicity. No bile duct dilatation or mass. Portal Vein: Normal hepatopetal flow with monophasic waveform. Gallbladder: Normally distended gallbladder with no stones or wall thickening. CBD: 0.4 cm Pancreas: Normal size and echogenicity. Right kidney: 9.4 cm in length. Normal size and echogenicity. No hydronephrosis or mass. Aorta and IVC: Unremarkable abdominal aorta and IVC. No ascites. US/US gall bladder [id number] IMPRESSION: Normal right upper quadrant ultrasound.
== END 2024-08-06 09:30 | disposition home or self-care (01) ==
PROVIDERS: PCP Nurse Practitioner Family; Visit Provider Nurse Practitioner Family
DX: R10.811 Right upper quadrant abdominal tenderness (principal)
CPT/HCPCS: 76705

== ENCOUNTER → 2024-12-03 14:40 | Outpatient (BNVA) | payer MEDICAID, SELFPAY | PROVIDERS: PCP Nurse Practitioner Family; Visit Provider Physician Assistant | DX: M65.331 Trigger finger, right middle finger (principal); M79.672 Pain in left foot; M79.641 Pain in right hand | CPT/HCPCS: 73130 ==

== ENCOUNTER → 2024-12-10 08:18 | Outpatient (BNVA) | payer MEDICAID, SELFPAY | PROVIDERS: PCP Nurse Practitioner Family; Visit Provider Podiatrist Foot & Ankle Surgery | DX: M25.871 Other specified joint disorders, right ankle and foot (principal); M25.872 Other specified joint disorders, left ankle and foot; M79.671 Pain in right foot; M79.672 Pain in left foot | CPT/HCPCS: 73630 ==

== ENCOUNTER 2024-12-12 08:03 | Day surgery (SDC) | payer MEDICAID, SELFPAY ==
[2024-12-12] VITALS (8 sets, daily range): BP systolic 125–191; BP diastolic 65–106; PULSE 58–68; RESP 14–18; TEMP 36.2–36.6; O2SAT 92–100; BMI 29.6
--- NOTE | 2024-12-12 08:34 | W.PM.OPSUD ---
Surgery/Procedure H&P Update DATE OF PROCEDURE: December 12, 2024 DATE H&P PERFORMED: 12/03/24 H&P UPDATE INFORMATION: I have reviewed H&P completed within last 30 days, I have examined patient prior to procedure and No changes to prior documentation PREOP DIAGNOSIS: Right middle finger trigger PRIMARY INDICATION FOR PROCEDURE: Right middle finger trigger PLANNED PROCEDURE: Operation Date: 12/12/24 09:45 Proposed Procedures p RIGHT Middle Trigger Finger Release(Right) - Mike Chun DO
--- NOTE | 2024-12-12 08:47 | ANES.PREANE2 ---
Pre-Anesthetic Assessment Height/Weight: Height 5 ft 5 in Weight 178 lb Temp Pulse Resp BP Pulse Ox O2 Del Method 97.2 F L 68 16 191/106 97 Room Air 12/12/24 08:30 12/12/24 08:30 12/12/24 08:30 12/12/24 08:30 12/12/24 08:30 12/12/24 08:30 Preop Diagnosis: Right middle finger trigger Operation Date: 12/12/24 09:45 Proposed Procedures p RIGHT Middle Trigger Finger Release(Right) - Mike Chun, DO Was Beta Betsy taken within 24 hours: Yes Was Clonidine taken within 24 hours: N/A Last intake: Intake Last Liquid Date 12/11/24 Last Liquid Time 22:00 Last Solid Date 12/11/24 Last Solid Time 15:30 Social No alcohol and No tobacco Exam alert, oriented x 3, clear to auscultation bilaterally and regular rate & rhythm Airway Submandibular: within normal limits Cervical ROM: within normal limits Mallampati: Class II Dentition: full Anesthetic Plan ASA status: 3 Anesthesia: MAC Other: No prior issues with anesthesia Patient completed prep Alpha-gal noted, team is aware Hypertension, controlled on metoprolol and hydrochlorothiazide Patient takes daily furosemide Denies cardiac or pulmonary issues Patient struggles with uncontrolled GERD, currently no symptoms at this moment Plan for MAC anesthesia with local via surgeon Medications/Allergies Home Medications ?Medication ?Instructions ?Recorded ?Confirmed ?Last Taken ?Type epinephrine 0.3 mg/0.3 mL 0.3 mg (0.3 mL) IM Q4H PRN 11/28/22 12/12/24 Unknown Rx injection, auto-injector (EpiPen anaphylaxis #2 ea 2-Kev) vitamin D3-vitamin K2 (MK4) 14 applic PO DAILY 01/21/24 12/12/24 01/22/24 History pantoprazole 40 mg tablet,delayed 40 mg PO ONCE 30 days #30 tabs 02/08/24 12/12/24 12/12/24 Rx release (Protonix) metoprolol succinate 50 mg See Rx Instructions .Route 11/25/24 12/12/24 12/12/24 Rx tablet,extended release 24 hr .COMPLEX #90 tabs Allergies Allergy/AdvReac Type Severity Reaction Status Date / Time Alpha-Gal Allergy Unknown Verified 12/11/24 10:44 (Mnttgljvy-Ualkq-2,3-Gala [facility] Anesthesia Medical History History of diverticulitis Dysuria HTN (hypertension), benign Sigmoid diverticulitis Surgical History History of conization of cervix History of elbow surgery bursa removed History of colonoscopy (~2008) S/P HUGH-BSO Family History Denies family history of Anesthesia complication Bleeding disorder Social History Smoking and tobacco/nicotine status: never used tobacco/nicotine Alcohol intake: never Substance/Drug Use: never Adopted: No Caregiver/support person: No Lives independently: No Household members: family service: No Sexually active: Yes Do you think of yourself as: Straight/Heterosexual Current gender identity: Female Shelly/Anabaptism: Yazdanism
[2024-12-12] MEDS: acetaminophen 1,000 MG/100 ML PIGGYBACK 400 MG IV (08:51)
[2024-12-12] MEDS: ceFAZolin 2,000 MG in sodium chloride 0.9% (plus) 50 ML 100 MG IV (09:37)
[2024-12-12] MEDS: ROPivacaine 0.5% SDV 30 mL 25 MG INJECTION (09:56)
--- NOTE | 2024-12-12 10:08 | P.BOP_ITS ---
Date of Procedure: 12/12/2024 Surgeon: Mike Chun DO Gauge Machine Operator(s): None Procedure(s) performed: Right middle finger trigger release Findings of the procedure(s): Procedure went as planned without issues or complications Estimated blood loss: 2 mL Specimen(s) removed: None Post-operative diagnosis: Right middle finger trigger
--- NOTE | 2024-12-12 10:08 | PM.OP ---
Operative Report Date of procedure: December 12, 2024 Surgeon: Mike Chun DO Procedure: Preoperative diagnosis: Right middle finger trigger Post-op diagnosis: Same Procedure done: Right?middle finger?trigger?release Surgeon: Mike Chun DO Estimated blood loss: 2cc Tourniquet time 6mins Complications: None Condition: stable Disposition: same day Brief History: Patient's been seen and worked up in the outpatient setting and findings consistent with preoperative diagnosis of right?middle finger?trigger.? Patient is failed conservative treatment.? Continues to have mechanical locking and catching.? Severe pain as well.? We talked about treatment options nonoperative versus operative intervention.? ?Patient understands the risk benefits complication alternatives of surgical nonsurgical treatment options.? Understanding risks with surgery patient elects proceed with surgical intervention for right middle finger trigger release.? Consent obtained in the preoperative holding area.? Here today to proceed with surgical intervention.? All questions answered. Procedure: Patient was seen and evaluated in the preoperative holding area.? Consent was reviewed and signed with patient.? Seen evaluated by Anesthesia Department.? Once cleared for surgery was brought back to the operative suite.? Placed in supine position on the OR table all bony prominences well-padded patient properly secured to the bed.? Patient's right arm was then placed to the armboard.? A nonsterile tourniquet applied to the right upper arm.? Patient's right upper extremity was then prepped and draped in standard orthopedic fashion.? Final timeout performed.? Patient received appropriate preoperative antibiotics. Esmarch tourniquet was used exsanguinate the right upper extremity tourniquet insufflated to 250 mmHg. Under sterile aseptic technique local digital block was performed to the right?middle finger.? Once appropriately anesthetized a standard oblique incision was made centering over the A1 jayant following patient's flexor crease.? Sharp scalpel incision was made only through skin and then switched to Littler dissection scissors and spread longitudinally directly over the flexor tendon sheath.? I then mobilized both radially and ulnarly and Kasdan retractors were used and placed by my human resources assistant manager to protect neurovascular bundle.? Next I visualized the A1 jayant and this was incised with a scalpel.? I then switched to dissection scissors and released the A1 jayant both proximally as well as distally to its entirety.? Significant tendon sheath fluid was noted consistent with inflammation.? Mild fraying of the flexor tendons noted but no tear.? At this point I utilized a rag nail and pulled the tendons FDS and FDP out of the incision and no?triggering was noted.? I then had anesthesia wake up the patient and patient was able to actively flex and extend the right middle finger with no?triggering.? This point thorough irrigation was performed.? Tourniquet deflated hemostasis satisfactory with bipolar.? I then subsequently closed the incision with interrupted nylon suture.? Xeroform 4 x 4's, Kerlix and an Socrates wrap was applied for a bulky soft dressing.? Patient was then subsequently awakened from anesthesia and taken to PACU in stable condition tolerated procedure without issues. Disposition: Patient taken back in stable condition recovering well.? Patient will receive appropriate discharge instruction as well as pain medication postoperatively.? Patient to follow-up with me in the office in 2 weeks for repeat evaluation and incision check.? Patient understands that any questions or concerns and contact the office.? All questions answered.
--- NOTE | 2024-12-12 10:56 | PC.NURSE ---
patient began shivering prior to dc, iv removed so demerol not given. educated pt that anesthesia can give other medication. pt denied, states it is getting better.
--- NOTE | 2024-12-12 11:00 | ANE.PACU2 ---
Inpatient post-anesthesia follow up: Airway intact: Yes Vital signs: Temperature 97.4 F Pulse Rate 60 Respiratory Rate 16 Blood Pressure 170/99 Pulse Oximetry 100 Oxygen Delivery Me thod Room Air Oxygen Flow Rate Fraction of Inspir ed Oxygen Hydration adequate: Yes Nausea and vomiting: No Pain level: 1 Mental status: Baseline
== END 2024-12-12 10:59 | disposition home or self-care (01) ==
PROVIDERS: PCP Nurse Practitioner Family; Visit Provider Student in an Organized Health Care Education/Training Program
PROC: (CPT 26055; principal; 2024-12-12 09:35)
DX: M65.331 Trigger finger, right middle finger (principal); I10 Essential (primary) hypertension; K21.9 Gastro-esophageal reflux disease without esophagitis; Z79.82 Long term (current) use of aspirin
CPT/HCPCS: 26055; J0131; J0690; J1885; J2250; J2795; J3010; J7030; J9999

== ENCOUNTER 2025-04-24 13:25 | Emergency (ER) | payer MEDICAID, SELFPAY ==
--- NOTE | 2025-04-24 13:27 | XR_ITS ---
WS: [id number] XR chest 1V portable [id number] REASON FOR EXAM: chest pain FINDINGS: The chest is unchanged compared to 10/04/2022. Mild tortuosity of the thoracic aorta normal heart size. Calcified granulomatous disease bilaterally. Focal eventration of the right hemidiaphragm. No acute pulmonary parenchymal or pleural abnormality. No significant abnormality of the bony thorax. XR/XR chest 1V portable [id number] IMPRESSION: Stable chest without acute abnormality.
--- NOTE | 2025-04-24 13:27 | ECG_ITS ---
Project 2020 No Paper Just Vapor Test Date: 2025-04-24 Pat Name: Luly Dumont Department: Room: Gender: Female Master Cook: : [id number] Requested By: Lyubov Olivares Order Number: [id number] Geovany MD: Leisa Alves M.D. Measurements Intervals [place] Rate: 59 P: 17 CT: 178 QRS: -21 QRSD: 93 T: 15 QT: 356 QTc: 354 Interpretive Statements SINUS BRADYCARDIA LOW QRS VOLTAGE IN PRECORDIAL LEADS [QRS DEFLECTION < 1.0 mV IN CHEST LEADS] MINIMAL VOLTAGE CRITERIA FOR LVH, CONSIDER NORMAL VARIANT [MEETS CRITERIA IN ONE OF: R(aVL), S(V1), R(V5), R(V5/V6)+S(V1)] POSSIBLE ANTERIOR MYOCARDIAL INFARCTION , PROBABLY OLD [30 ms Q WAVE IN V3/V4, OR R < 0.2 mV IN V4] Diffuse non specific T- wave changes Compared to ECG 10/04/2022 15:43:46 Low QRS voltage now present Sinus rhythm no longer present Myocardial infarct finding still present Electronically Signed On 04-25-2025 14:00:34 [employer] by Leisa Alves M.D. [id number]
--- OUTSIDE RECORDS SUMMARY | 2025-04-24 13:31 | XMS_ITS | Clinical Summary ---
Author Organization [facility] Address [address] Popen: Epic Prelude ADT JORGE NOLASCO [address] Care Team Providers Care Teachers Aide Name Role Phone Unavailable Primary Care Provider Unavailabl e Allergies No known active allergies Medications hydroCHLOROthia zide 25 mg tablet Take 25 mg by mouth daily. 10/20/2022 Active omeprazole (PriLOSEC) 40 mg Capsule, Delayed Release(E.C.) Take 40 mg by mouth daily. Active furosemide (Lasix) 20 mg tablet Take 1 Tablet (20 mg) by mouth daily. 90 Tablet 3 05/22/2023 Active buPROPion HCL (WELLBUTRIN SR) 150 mg Sustained Release 12 hour tablet Take 150 mg by mouth 2 times daily. Active metoprolol succinate (TOPROL XL) 25 mg Extended Release 24 hour tablet Take 25 mg by mouth daily. Active aspirin (ECOTRIN EC) 81 mg Tablet, Delayed Release (E.C.) Take 1 Tablet (81 mg) by mouth daily. Take after largest meal of the day 90 Tablet 3 08/06/2023 Active [id number] -fish oil (Fish OiL) 1,000 mg Capsule Take 1 Capsule by mouth daily. 90 Capsule 3 08/06/2023 Active atorvastatin (LIPITOR) 20 mg tablet Take 2 Tablets (40 mg) by mouth daily at bedtime. 90 Tablet 3 08/06/2023 Active Active Problems No known active problems Immunizations Immunization Administration Dates Next Due Influenza Seasonal Unspecified Formulation IM Family History Medical History Relation Name Comments Hypertension Brother 1 Hypertension Brother 2 Heart Disease Father Hypertension Mother Stroke Mother Hypertension Sister Relation Name Status Comments Brother 1 Alive Brother 2 Alive Father Mother Alive Sister Alive Social History Tobacco Use Types Packs/Day Years Used Date Smoking Tobacco: Never Tobacco Cessation:Counseling Given: Not Answered Alcohol Use Standard Drinks/Week Comments No 0 (1 standard drink = 0.6 oz pur e alcohol) Comments Unknown Sex and Gender Information Value Date Recorded Sex Assigned at Not on file Legal Sex Female 6:33 AM HOISTING ENGINE OPERATOR Gender Identity Female 05/14/2023 4:04 PM HOISTING ENGINE OPERATOR Sexual Orientation Not on file Last Filed Vital Signs Vital Sign Reading Time Taken Comments Blood Pressure 120/82 08/06/2023 1:43 PM HOISTING ENGINE OPERATOR Pulse 64 08/06/2023 1:43 PM HOISTING ENGINE OPERATOR Temperature 36.3 C (97.4 F) 07/26/2016 10:10 AM HOISTING ENGINE OPERATOR Respiratory Rate 16 06/11/2023 10:5 0 AM HOISTING ENGINE OPERATOR Oxygen Saturation 95% 06/11/2023 10: 50 AM HOISTING ENGINE OPERATOR Inhaled Oxygen Concentration - - Weight 81.6 kg (179 lb 12.8 oz) 08/06/2023 1:43 PM HOISTING ENGINE OPERATOR Height 167.6 cm (5' 6 ) 08/06/2023 1:43 PM HOISTING ENGINE OPERATOR Body Mass Index 29.02 08/06/2023 1:43 PM HOISTING ENGINE OPERATOR Plan of Treatment Health Maintenance Due Date Last Done Comments DTAP/TDAP/TD VACCINES (1 - Tdap) 1981 HPV/Cotest (21-29) 1983 CERVICAL CANCER SCREENING 1992 HPV/Cotest (30-65) 1992 PAP SMEAR 1992 BREAST CANCER SCREENING 2002 COLORECTAL SCREENING 2007 Colorectal Cancer Screening 2007 FIT-DNA Q 3 years 2007 FIT/FOBT Q 1 year 2007 Flex Sig/CT Colonography Q 5 years 2007 ZOSTER VACCINE (1 of 2) 2012 INFLUENZA VACCINE (#1) 2025 03/21/1996 RSV VACCINE (60+ or ) (1 - 1-dose 75+ series) [address] [place] [address] HEALTH PLAN MEDICAID
--- OUTSIDE RECORDS SUMMARY | 2025-04-24 13:31 | XMS_ITS | Encounter Summary ---
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 [address] [address] [place] [address] Pineda Bowman MD NO ADDRESS ON FILE Gynecologic examination (Primary Dx) Social History Tobacco Use Types Packs/Day Years Used Date Smoking Tobacco: Never Assessed Comments Unknown Sex and Gender Information Value Date Recorded Sex Assigned at Not on file 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
--- OUTSIDE RECORDS SUMMARY | 2025-04-24 13:31 | XMS_ITS | Patient Health Record ---
Author Organization [facility] Address [address] [place] [address] Support Name Relationship Address Phone Luly Dumont Guarantor Unknown [phone] Reason For Referral No Information Medications Medication SIG (Take, Route, Frequency, Duration) Notes Start Date End Date Status Estrogens, Conjugated (CHCF) 0.9 MG Oral Tablet Estrogens, Conjugated (CHCF) 0.9 MG Oral Tablet 11/22/2010 0 Active Cyclobenzaprine hydrochloride 10 MG Oral Tablet Cyclobenzaprine hydrochloride 10 MG Oral Tablet 11/22/2010 0 Active Social History Social History Additional Details Category Social Info Options Details zzMigrated Social History Migrated Social History Smoking Status:Tobacco smoking consumption unknown (finding) Plan Of Treatment No Information
--- OUTSIDE RECORDS SUMMARY | 2025-04-24 13:31 | XMS_ITS | Encounter Summary ---
Author Organization [facility] Address [address] [place] [address] Care Team Providers Care Manager College Name Role Phone AYUSH Hwang Sr., Harry Helms Primary Care Pro vider Encounter Details Date Type Department Care Team (Latest Contact Info) Description 09/03/1998 Outpatient Historical [facility] DIRECTOR DATA [address] [place] [address] Shankar Farooq [address], [address] [place] [address] Gynecologic examination (Primary Dx) Social History Tobacco Use Types Packs/Day Years Used Date Smoking Tobacco: Never Assessed Comments Unknown Sex and Gender Information Value Date Recorded Sex Assigned at Not on file 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
--- OUTSIDE RECORDS SUMMARY | 2025-04-24 13:31 | XMS_ITS | Clinical Summary ---
Author Organization [facility] Address [address] [place] [address] Phone Care Team Providers Care Sampler Ovens Name Role Phone Eri Wells, AYUSH, Harry Helms Primary Care Pro vider Allergies No known active allergies Medications sertraline (ZOLOFT) 50 mg tablet Take 50 mg by mouth daily. Active ALPRAZolam (XANAX) 1 mg tablet Take 1 mg by mouth nightly as needed. 1-3 TIMES A DAY Active amLODIPine (NORVASC) 2.5 mg tablet Take 2.5 mg by mouth daily. 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 Gender Identity Not on file Sexual Orientation Not on file Last Filed Vital Signs Vital Sign Reading Time Taken Comments Blood Pressure 110/60 07/26/2016 10:10 AM COMPOUND MACHINE OPERATOR Pulse 70 07/26/2016 10:10 AM COMPOUND MACHINE OPERATOR Temperature 36.3 C (97.4 F) 07/26/2016 10:10 AM COMPOUND MACHINE OPERATOR Respiratory Rate 18 07/26/2016 10:10 AM COMPOUND MACHINE OPERATOR Oxygen Saturation 99% 07/26/2016 10:10 AM COMPOUND MACHINE OPERATOR Inhaled Oxygen Concentration - - Weight 78.9 kg (174 lb) 07/26/2016 10:10 AM COMPOUND MACHINE OPERATOR Height 167.6 cm (5' 6 ) 07/26/2016 10:10 AM COMPOUND MACHINE OPERATOR Body Mass Index 28.08 07/26/2016 10:10 AM COMPOUND MACHINE OPERATOR Plan of Treatment Health Maintenance Due Date Last Done Comments DTAP/TDAP/TD VACCINES (1 - Tdap) 1981 HPV/Cotest (21-29) 1983 HPV/Cotest (30-65) 1992 BREAST CANCER SCREENING 2002 CERVICAL CANCER SCREENING 10/02/2003 PAP SMEAR 10/02/2003 10/01/2000, 09/14/1997 COLORECTAL SCREENING 2007 Colorectal Cancer Screening 2007 FIT-DNA Q 3 years 2007 FIT/FOBT Q 1 year 2007 Flex Sig/CT Colonography Q 5 years 2007 ZOSTER VACCINE (1 of 2) 2012 INFLUENZA VACCINE (#1) 2025 03/21/1996 RSV VACCINE (60+ or ) (1 - 1-dose 75+ series) 2037 Care Teams Sampler Ovens Relationship Specialty Start Date End Date Eri Wells, AYUSH Dominguez [address] [place] [address] PCP - General NURSE PRACTITIONER 07/07/14
--- OUTSIDE RECORDS SUMMARY | 2025-04-24 13:31 | XMS_ITS | Encounter Summary ---
Author Organization [facility] Address [address] [place] [address] Care Team Providers Care Epidemiologist Name Role Phone AYUSH Hwang Sr., Michael Dave Primary Care Pro vider Encounter Details Date Type Department Care Team (Latest Contact Info) Description 08/23/1999 Outpatient Historical [facility] IRONING PLEATER [address] [place] [address] Pineda Bowman MD NO ADDRESS ON FILE Gynecologic examination (Primary Dx); Metrorrhagia Social History Tobacco Use Types Packs/Day Years Used Date Smoking Tobacco: Never Assessed Comments Unknown Sex and Gender Information Value Date Recorded Sex Assigned at Not on file 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
--- OUTSIDE RECORDS SUMMARY | 2025-04-24 13:31 | XMS_ITS | Encounter Summary ---
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
--- OUTSIDE RECORDS SUMMARY | 2025-04-24 13:31 | XMS_ITS | Encounter Summary ---
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
[2025-04-24 13:33] VITALS: BP 136/85; PULSE 59; RESP 18; TEMP 36.4; O2SAT 98
[2025-04-24 14:11] VITALS: BP 134/81; PULSE 64; RESP 16; O2SAT 97
[2025-04-24 14:17] LABS: Hematocrit 37.8 % (36-47); Hemoglobin 12.80 g/dL (11.27-16.99); Mean Corpuscular HGB Conc 33.9 g/dL (30-55); Mean Corpuscular Hemoglobin 32.0 pg (27-33); Mean Corpuscular Volume 94.5 fl (85-98); Nucleated Red Blood Cells % 0 %; Platelet Count 186 10^3/cmm (157-399); Red Blood Count 4.00 10^6/uL (3.85-5.65); White Blood Count 3.58 10^3/uL (3.29-11.43)
[2025-04-24 14:30] VITALS: BP 139/85; PULSE 61; RESP 16; O2SAT 98
--- NOTE | 2025-04-24 14:33 | W.ED.CHESTPA ---
HPI - Chest Pain General: Chief Complaint: Chest Pain Stated Complaint: chest pain Time Seen by Provider: 04/24/25 13:43 History of Present Illness: 64-year-old female presents emergency room with complaint of chest pain for the last 2 days intermittently says it is better when she lays down. Her heart rate has varied sometimes getting as low as 40s at times as high as 80s. Show left chest pain was discomfort into her chest radiating into her neck. She has had some shortness of breath diaphoresis with it. She is not denies anything that exacerbates it but she does not notice that lying down makes it better no fever sweats or chills she has known history of atrial fibrillation for which she takes metoprolol. She is not on any oral anticoagulants. Several years ago she had a stress test that was unremarkable. Prior to that she had an angiogram she said they said she had some plaques but no obstructing disease. Associated symptoms: Deny abdominal pain, dyspnea or fever(s) Related Data Home Medications ?Medication ?Instructions ?Recorded ?Confirmed [id number] 8 mg-folic 2 tab PO DAILY 04/24/25 04/29/25 ac 400 mcg-vit K 10 mcg chew tablet (Centrum Chewables) pantoprazole 40 mg tablet,delayed 40 mg PO DAILY 04/24/25 04/29/25 release (Protonix) Previous Rx's ?Medication ?Instructions ?Recorded epinephrine 0.3 mg/0.3 mL 0.3 mg (0.3 mL) IM Q4H PRN 11/28/22 injection, auto-injector (EpiPen anaphylaxis #2 ea 2-Kev) ondansetron 4 mg disintegrating 4 mg PO Q6H PRN nausea and 04/22/25 tablet vomiting #10 tabs amlodipine 2.5 mg tablet 2.5 mg PO DAILY #30 tabs 04/24/25 metoprolol succinate 50 mg 50 mg PO DAILY 25 days #15 tabs 04/24/25 tablet,extended release 24 hr Allergies Allergy/AdvReac Type Severity Reaction Status Date / Time Alpha-Gal Allergy Unknown Verified 04/29/25 08:20 (Smlzydmje-Cpqdq-4,3-Gala Review of Systems Const: Denies: fever(s) or chills Card: Denies: chest pain Resp: Denies: dyspnea GI: Denies: abdominal pain : Denies: dysuria, urinary frequency or urinary urgency Musc: Denies: neck pain or back pain Skin/Breast: Denies: rash PFSH ED PFSH: Medical History History of diverticulitis Dysuria HTN (hypertension), benign Sigmoid diverticulitis Surgical History History of conization of cervix History of elbow surgery bursa removed History of colonoscopy (~2008) S/P HUGH-BSO Family History Denies family history of Anesthesia complication Bleeding disorder Social History Smoking and tobacco/nicotine status: former use of tobacco/nicotine Alcohol intake: never Substance/Drug Use: never Adopted: No Caregiver/support person: No Lives independently: No Household members: family service: No Sexually active: Yes Do you think of yourself as: Straight/Heterosexual Current gender identity: Female Shelly/Evangelical: Nondenominational Physical Exam Const: COMMON NORMALS: no acute distress GENERAL APPEARANCE: cooperative and comfortable ORIENTATION/CONSCIOUSNESS: Yes awake, Yes oriented to person, Yes oriented to place and Yes oriented to time HENMT: COMMON NORMALS: normocephalic, atraumatic and hearing grossly normal bilaterally HEAD & SCALP: normocephalic and atraumatic Resp: COMMON NORMALS: normal respiratory effort, No retractions, No use of accessory muscles and clear to auscultation bilaterally AUSCULTATION: clear to auscultation bilaterally Cardio: COMMON NORMALS: regular rate, regular rhythm and No murmurs present (Cardio) RATE: regular rate RHYTHM: regular rhythm GI: COMMON NORMALS: Soft to palpation and No hepatosplenomegaly present AUSCULTATION: Yes normoactive bowel sounds PALPATION: Yes Soft to palpation, No Tenderness to palpation present (GI), No Guarding due to palpation present (GI) and Yes No hepatosplenomegaly present Extremity: COMMON NORMALS: normal to inspection, capillary refill normal, no clubbing, cyanosis or edema, no calf tenderness and no pedal edema Neuro: SENSORIUM/ORIENTATION: Yes oriented to person, Yes oriented to place and Yes oriented to time Skin: COMMON NORMALS: no rashes or lesions noted GENERAL SKIN EXAM: no rashes or lesions noted Course Vital Signs: Vital signs: Vital Signs Temperature 97.6 F 04/24/25 13:33 Pulse Rate 67 04/24/25 18:08 Respiratory Rate 16 04/24/25 17:41 Blood Pressure 137/79 04/24/25 18:08 Pulse Oximetry 95 04/24/25 18:08 Oxygen Delivery Me thod Room Air 04/24/25 17:41 MDM - Chest Pain Medical Decision Making Medical decision making Social determinants: None I reviewed the patient's medical record. I reviewed the patient's current home meds> Alternate historians: None Differential diagnosis: Acute coronary syndrome versus PE first pneumonia versus pneumothorax dissecting aneurysm Lab Review: Labs reviewed troponins trended negative. No acute EKG changes. D-dimer elevated Imaging: Chest x-ray unremarkable CTA negative for PE Assessment of risk Level of risk: Moderate Hospitalization considerations: Potential for hospitalization pending workup if patient does have acute coronary syndrome PE pneumonia or pneumothorax. Reexamination: Stable no further chest pain Assessment and plan: EKG does not show any acute changes troponins trended negative D-dimer was elevated but CT of the chest is normal. No sign of pneumothorax PE dissecting aneurysm or pneumonia on chest x-ray or CTA chest. Patient is otherwise stable has been bradycardic but is on metoprolol blood pressure is well-maintained. Decrease your metoprolol dose add amlodipine 2.5 mg daily and have her follow-up with her doctor within the next week to reevaluate blood pressure control and heart rate. Return if has further problems or recurrence of chest pain.. Lab Data 04/24/25 14:05 04/24/25 14:05 Radiology Impressions Chest X-Ray 04/24/25 13:27 IMPRESSION: Stable chest without acute abnormality. Chest CTA 04/24/25 16:44 IMPRESSION: 1. No acute pulmonary embolism. 2. Trace left pleural effusion with pleural calcification, likely chronic. Subsegmental dependent atelectasis bilaterally. Laboratory Results WBC 3.58 10^3/uL (3.29-11.43) 04/24/25 14:05 RBC 4.00 10^6/uL (3.85-5.65) 04/24/25 14:05 Hgb 12.80 g/dL (11.27-16.99) 04/24/25 14:05 Hct 37.8 % (36-47) 04/24/25 14:05 MCV 94.5 fl (85-98) 04/24/25 14:05 MCH 32.0 pg (27-33) 04/24/25 14:05 MCHC 33.9 g/dL (30-55) 04/24/25 14:05 RDW 12.1 % (12.1-15.1) 04/24/25 14:05 Plt Count 186 10^3/cmm (157-399) 04/24/25 14:05 MPV 9.3 fL (7.4-10.4) 04/24/25 14:05 Neut % (Auto) 64.1 % 04/24/25 14:05 Lymph % (Auto) 26.3 % 04/24/25 14:05 Leake % (Auto) 8.4 % 04/24/25 14:05 Eos % (Auto) 0.6 % 04/24/25 14:05 Baso % (Auto) 0.3 % 04/24/25 14:05 Neut # (Auto) 2.30 10^3/uL (1.8-7.7) 04/24/25 14:05 Lymph # (Auto) 0.9 10^3/uL (0.8-4.8) 04/24/25 14:05 Leake # (Auto) 0.3 10^3/uL (0.2-0.9) 04/24/25 14:05 Eos # (Auto) 0.0 10^3/uL (0.0-0.8) 04/24/25 14:05 Baso # (Auto) 0.0 10^3/uL (0.0-0.1) 04/24/25 14:05 Nucleated RBC % (auto) 0 % 04/24/25 14:05 Nucleated RBCs # 0.0 /100WBC 04/24/25 14:05 D-Dimer 1.55 ug/mLFEU (0-0.59) H 04/24/25 14:05 Sodium 139 mmol/L (136-145) 04/24/25 14:05 Potassium 3.6 mmol/L (3.5-5.1) 04/24/25 14:05 Chloride 100 mmol/L (98-107) 04/24/25 14:05 Carbon Dioxide 30 mmol/L (22-29) H 04/24/25 14:05 Anion Gap 12.6 (5-19) 04/24/25 14:05 BUN 11 mg/dL (8-23) 04/24/25 14:05 Creatinine 0.8 mg/dL (0.5-0.9) 04/24/25 14:05 GFR Calculation 72.7 mL/min (90-130) L 04/24/25 14:05 Glucose 102 mg/dL (65-115) 04/24/25 14:05 Calculated Osmolality 288 mOsm/kg (285-295) 04/24/25 14:05 Calcium 9.0 mg/dL (8.5-10.5) 04/24/25 14:05 Total Bilirubin 0.5 mg/dL (0.15-1.2) 04/24/25 14:05 AST 24 U/L (0-32) 04/24/25 14:05 ALT 19 U/L (0-33) 04/24/25 14:05 Alkaline Phosphatase 70 U/L (35-105) 04/24/25 14:05 Troponin T Baseline 8 ng/L (0-10) 04/24/25 14:05 Troponin T 120 Minute < 6.0 ng/L (0-10) 04/24/25 16:24 Delta Troponin T -2.56964 ABS# (0-10) L 04/24/25 16:24 Total Protein 6.0 g/dL (6.6-8.7) L 04/24/25 14:05 Albumin 3.8 g/dL (3.5-5.2) 04/24/25 14:05 Globulin 2.2 g/dL (1.3-4.6) 04/24/25 14:05 All radiology interpretation(s) finalized by discharge EKG Data EKG 1: I personally reviewed and interpreted this EKG as follows: Interpretation: EKG 04/24/2025 1331 sinus bradycardia rate of 59 NE interval [address] changes no acute ST elevation. Compared to EKG 10/04/2022 no significant change. EKG 2: I personally reviewed and interpreted this EKG as follows: Interpretation: EKG 04/24/2025 1620 sinus bradycardia rate of 51 NE interval 197 QTc [address] changes noted no ST depression or elevation. EKG done earlier same day. Clincial Decision Support The following clinical decision support tools were used to aid in care of the patient HEART Score -> History: Slightly Suspicous, EKG: Non-specific Changes, Age: 45-64 yrs, Risk Factors: 1 or 2 Risk Factors, Troponin: Baseline Trop <16 ng/L. Resulting HEART Score: 3. Discharge Plan Discharge Patient Disposition: Home Clinical Impression: Atypical chest pain Condition: Stable Prescriptions: New amlodipine 2.5 mg tablet 2.5 mg PO DAILY Qty: 30 0RF Changed metoprolol succinate 50 mg tablet extended release 24 hr 50 mg PO DAILY 25 Days Qty: 15 0RF No Action epinephrine [EpiPen 2-Kev] 0.3 mg/0.3 mL auto-injector 0.3 mg IM Q4H PRN (Reason: anaphylaxis) Qty: 2 0RF ondansetron 4 mg tablet,disintegrating 4 mg PO Q6H PRN (Reason: nausea and vomiting) Qty: 10 0RF Centrum Chewables 8 mg-400 mcg- 10 mcg Tablet,Chewable 2 tab PO DAILY pantoprazole [Protonix] 40 mg tablet,delayed release (DR/EC) 40 mg PO DAILY Discharge Orders: Discharge ED (Routine); Ordered 04/24/25 Ordered By: Ramu Morales Referrals: Riri Mcadams FNP [Primary Care Provider, Family Practice] Discharge Diet: Usual diet Discharge Activity: Resume usual activity Patient Instructions: Chest Pain (ED), Opioid Safety, Pain Management, Patient Portal & Sukumar Instructions Activity Restrictions/Additional Instructions: Thank you for choosing [facility] for your healthcare needs today. It is very important that you follow up as instructed or that you return to the Emergency Department should you have concerns or if your condition changes or worsens in any way. Emergency department visits are focused on emergent conditions, in some cases you may require further evaluation on an outpatient basis. You were seen emergency room with complaint of chest discomfort. Your cardiac enzymes and EKG were normal. You were mildly bradycardic (slow heart rate) while you are in the emergency room however your blood pressure was well-maintained. We did a screening test for blood clots which was slightly elevated however we did the scan of your chest there is no sign of blood clots in the chest. We recommend that you decrease your metoprolol to 25 mg daily (Please note that included in your discharge packet is information concerning opioid safety and pain management. This information is given to all patients were discharged from the ER regardless of their discharge diagnosis or the medicines they usually take or are prescribed.) Print Language: Danish Coding Level of Care Code ED National Account Manager for Kiarag Linette Heart Score HEART Score Components History: Slightly Suspicous EKG: Non-specific Changes Age: 45-64 yrs Risk Factors: 1 or 2 Risk Factors Troponin: Baseline Trop <16 ng/L HEART Score RESULT HEART Score: 3
[2025-04-24 14:35] LABS: Troponin(5th) Baseline 8 ng/L (0-10)
[2025-04-24 14:39] LABS: Alanine Aminotransferase 19 U/L (0-33); Albumin Level 3.8 g/dL (3.5-5.2); Alkaline Phosphatase 70 U/L (35-105); Anion Gap 12.6 (5-19); Aspartate Amino Transferase 24 U/L (0-32); Blood Urea Nitrogen 11 mg/dL (8-23); Calcium 9.0 mg/dL (8.5-10.5); Carbon Dioxide 30 mmol/L (22-29); Chloride 100 mmol/L (98-107); Globulin 2.2 g/dL (1.3-4.6); Glucose 102 mg/dL (65-115); Osmolality Calculated 288 mOsm/kg (285-295); Potassium 3.6 mmol/L (3.5-5.1); Sodium 139 mmol/L (136-145); Total Protein 6.0 g/dL (6.6-8.7)
--- NOTE | 2025-04-24 16:20 | ECG_ITS ---
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 Measurements Intervals [place] Rate: 51 P: 15 AR: 197 QRS: -23 QRSD: 86 T: 4 QT: 380 QTc: 351 Interpretive Statements SINUS BRADYCARDIA BORDERLINE LEFT AXIS DEVIATION [QRS AXIS < -20] LOW QRS VOLTAGE IN PRECORDIAL LEADS [QRS DEFLECTION < 1.0 mV IN CHEST LEADS] MINIMAL VOLTAGE CRITERIA FOR LVH, CONSIDER NORMAL VARIANT [MEETS CRITERIA IN ONE OF: R(aVL), S(V1), R(V5), R(V5/V6)+S(V1)] NONSPECIFIC ST & T-WAVE ABNORMALITY Compared to ECG 04/24/2025 13:31:33 T-wave abnormality now present Myocardial infarct finding no longer present Electronically Signed On 04-25-2025 14:19:51 [employer] by Leisa Alves M.D. [email or web address]
[2025-04-24] MEDS: morphine 4 mg/mL SDV 1 mL 2 MG IM (16:42)
[2025-04-24 16:44] VITALS: BP 141/72; PULSE 53; RESP 16; O2SAT 98
--- NOTE | 2025-04-24 16:44 | CTR_ITS ---
PROCEDURE INFORMATION: Exam: CTA Chest With Contrast Exam date and time: 04/24/2025 5:16 PM Age: 64 years old Clinical indication: Chest pressure and discomfort TECHNIQUE: Imaging protocol: Computed tomographic angiography of the chest with contrast. Exam focused on the arteries. 3D rendering (Not supervised by radiologist): MIP and/or 3D reconstructed images were created by the technologist. Radiation optimization: All CT scans at this facility use at least one of these dose optimization techniques: automated exposure control; mA and/or kV adjustment per patient size (includes targeted exams where dose is matched to clinical indication); or iterative reconstruction. Contrast material: OMNIPAQUE 350; Contrast volume: 65 ml; Contrast route: INTRAVENOUS (IV); COMPARISON: CT angio chest PE protcl [id number] 06/18/2024 2:10 PM RADIATION DOSE METRICS: Total DLP (mGy-cm): 325.03 FINDINGS: Pulmonary arteries: No acute pulmonary embolism. Aorta: No aortic aneurysm. Lungs: No consolidation. Subsegmental dependent atelectasis in the bilateral lower lobes Pleural spaces: Trace left pleural effusion. There is a small pleural calcification in the left lung base. No pneumothorax. Heart: Mild cardiomegaly. No pericardial effusion. Coronary vascular calcifications. Lymph nodes: No lymphadenopathy by CT size criteria. Bones/joints: No acute fracture. Soft tissues: Unremarkable. CT/CT angio chest PE protcl [id number] IMPRESSION: 1. No acute pulmonary embolism. 2. Trace left pleural effusion with pleural calcification, likely chronic. Subsegmental dependent atelectasis bilaterally.
[2025-04-24 16:52] LABS: Troponin 5 2HR < 6.0 ng/L (0-10)
[2025-04-24 16:56] LABS: Troponin 5 2HR Delta -2.00001 ABS# (0-10)
[2025-04-24] MEDS: iohexol 350 mg/mL 500 mL Btl (per mL) IV (17:20)
[2025-04-24 17:41] VITALS: BP 137/79; PULSE 73; RESP 16; O2SAT 97
[2025-04-24 18:08] VITALS: BP 137/79; PULSE 67; O2SAT 95
== END 2025-04-24 18:19 | disposition home or self-care (01) ==
PROVIDERS: Physician Assistant; Emergency Provider Family Medicine; PCP Nurse Practitioner Family
DX: R07.89 Other chest pain (principal); Z87.891 Personal history of nicotine dependence; I10 Essential (primary) hypertension
CPT/HCPCS: 36415; 71045; 71275; 80053; 84484; 85025; 85378; 93005; 96372; 99285; J2270